=== PATIENT | male | born 1955 | race Hispanic/Latino ===

== ENCOUNTER → 2017-02-07 | Outpatient (CLI) | payer BC ==
[~2017-02-07] MED LIST: LISI10TA2 PO
--- NOTE | 2017-02-07 18:00 | Diagnostic Imaging Report ---
INDICATION: Cough and chest pain x1 week. TECHNIQUE: Two view chest at 4:54 PM CORRELATION STUDY: 05/18/2016 and 04/09/2015. FINDINGS: Heart size and vasculature within normal limits. Slight increased soft tissue density around the right paratracheal region superiorly, appears generally stable. On the lateral projection, there is increased density in the retrocardiac region, appears unchanged. The lung mcclain are otherwise clear and unremarkable Multi-level degenerative changes of the thoracic spine, disc space narrowing and endplate lipping. IMPRESSION: 1. Relatively stable chest demonstrates no acute abnormality. Dictated by: Dictated on workstation # [id number]
== END ==
LOC: RAD 16:28
PROVIDERS: ATTEND Family Medicine
DX: R05 Cough (principal); R07.9 Chest pain, unspecified
CPT/HCPCS: 71020

== ENCOUNTER 2017-02-11 10:20 | Emergency (ER) | payer BC ==
[~2017-02-11] VITALS: Ht 170.2 cm; Wt 86.2 kg
--- NOTE | 2017-02-11 11:25 | ED General ---
General Stated Complaint: LUNGS HURTING, BODY ACHES, FATIGUE Source of Information: Patient Exam Limitations: No Limitations History of Present Illness Time Seen by Provider: 11:23 Initial Comments To ER with reports of diffuse body aches, headache, "lungs hurting", productive cough for 2 weeks. Over the past few days, he's also developed diarrhea. He's had a fever up to 102. He had laboratory and chest x-ray evaluation 1 week ago by his primary care provider Dr. Srinivasan. He was told the x-ray was normal. He was given a course of Zithromax which he has finished. On the he was given a five-day course of 50 mg daily prednisone so he still has 1 more day of this. Despite this, his temperature still 102 upon arrival to ER. He denies any tick bites.He reports that his worst symptom is the productive cough. Timing/Duration: 1-2 Days Severity: Moderate Associated Systoms: Cough, Fever/Chills Allergies and Home Medications Allergies Coded Allergies: adhesive tape (Unverified Allergy, Unknown, 05/18/16) Home Medications No Active Prescriptions or Reported Meds Constitutional: see HPI, chills, fever, malaise EENTM: see HPI Respiratory: see HPI, cough, short of breath Cardiovascular: no symptoms reported Genitourinary: no symptoms reported Musculoskeletal: see HPI, muscle pain Skin: no symptoms reported Psychiatric/Neurological: No Symptoms Reported Hematologic/Lymphatic: No Symptoms Reported Past Xbzckzn-Wfazkf-Noybgl Hx Patient Social History Former Smoker, Quit: May 18, 1980 Recent Foreign Travel: No Contact w/Someone Who Travel: No Recent Hopitalizations: No Immunizations Up To Date Date of Influenza Vaccine: Apr 17, 2016 Seasonal Allergies Seasonal Allergies: No Respiratory Respiratory Disorders: Sleep Apnea Currently Using CPAP: Yes Currently Using BIPAP: No Cardiovascular Cardiac Disorders: Hypertension Reproductive System Hx Reproductive Disorders: No Integumentary Skin/Integumentary Disorders: Psoriasis Physical Exam Vital Signs Capillary Refill : General Appearance: No Apparent Distress, WD/WN Eyes: Bilateral Eye Normal Inspection, Bilateral Eye PERRL, Bilateral Eye EOMI HEENT: PERRL/EOMI, TMs Normal Neck: Full Range of Motion, Normal Inspection Respiratory: Normal Breath Sounds, No Accessory Muscle Use, No Respiratory Distress Gastrointestinal: Normal Bowel Sounds, Non Tender, Soft Extremity: Normal Capillary Refill, Normal Inspection Neurologic/Psychiatric: Alert, Oriented x3, No Motor/Sensory Deficits Skin: Normal Color, Warm/Dry Focused Exam Evaluation Lactate Level Laboratory Tests 02/11/17 11:20: Lactic Acid Level 1.01 Lactic Acid Level Laboratory Tests Test 02/11/17 11:20 Lactic Acid Level 1.01 MMOL/L (0.50-2.00) Progress/Results/Core Measures Results/Orders Lab Results Laboratory Tests Test 02/11/17 11:20 02/11/17 14:20 Range/Units White Blood Count 12.5 H 4.3-11.0 10^3/uL Red Blood Count 4.80 4.35-5.85 10^6/uL Hemoglobin 15.0 13.3-17.7 G/DL Hematocrit 45 40-54 % Mean Corpuscular Volume 93 80-99 FL Mean Corpuscular Hemoglobin 31 25-34 PG Mean Corpuscular Hemoglobin Concent 34 32-36 G/DL Red Cell Distribution Width 12.7 10.0-14.5 % Platelet Count 141 130-400 10^3/uL Mean Platelet Volume 10.9 H 7.4-10.4 FL Neutrophils (%) (Auto) 69 42-75 % Lymphocytes (%) (Auto) 23 12-44 % Monocytes (%) (Auto) 7 0-12 % Eosinophils (%) (Auto) 0 0-10 % Basophils (%) (Auto) 1 0-10 % Neutrophils # (Auto) 8.6 H 1.8-7.8 X 10^3 Lymphocytes # (Auto) 2.8 1.0-4.0 X 10^3 Monocytes # (Auto) 0.9 0.0-1.0 X 10^3 Eosinophils # (Auto) 0.0 0.0-0.3 10^3/uL Basophils # (Auto) 0.2 H 0.0-0.1 10^3/uL Erythrocyte Sedimentation Rate 11 0-30 MM/HR Sodium Level 138 135-145 MMOL/L Potassium Level 3.8 3.6-5.0 MMOL/L Chloride Level 105 98-107 MMOL/L Carbon Dioxide Level 23 21-32 MMOL/L Anion Gap 10 5-14 MMOL/L Blood Urea Nitrogen 14 7-18 MG/DL Creatinine 0.96 0.60-1.30 MG/DL Estimat Glomerular Filtration Rate > 60 BUN/Creatinine Ratio 15 Glucose Level 109 H 70-105 MG/DL Lactic Acid Level 1.01 0.50-2.00 MMOL/L Calcium Level 8.9 8.5-10.1 MG/DL Total Bilirubin 0.6 0.1-1.0 MG/DL Aspartate Amino Transf (AST/SGOT) 58 H 5-34 U/L Alanine Aminotransferase (ALT/SGPT) 45 0-55 U/L Alkaline Phosphatase 77 40-136 U/L C-Reactive Protein High Sensitivity 0.11 0.00-0.50 MG/DL Total Protein 7.4 6.4-8.2 GM/DL Albumin 3.9 3.2-4.5 GM/DL Monoscreen NEGATIVE NEGATIVE Urine Color YELLOW Urine Clarity SLIGHTLY CLOUDY Urine pH 6.5 5-9 Urine Specific Robinson 1.005 L 1.016-1.022 Urine Protein 1+ H NEGATIVE Urine Glucose (UA) NEGATIVE NEGATIVE Urine Ketones NEGATIVE NEGATIVE Urine Nitrite NEGATIVE NEGATIVE Urine Bilirubin NEGATIVE NEGATIVE Urine Urobilinogen NORMAL NORMAL MG/DL Urine Leukocyte Esterase NEGATIVE NEGATIVE Urine RBC (Auto) 1+ H NEGATIVE Urine RBC NONE /HPF Urine WBC NONE /HPF Urine Squamous Epithelial Cells 0-2 /HPF Urine Crystals NONE /LPF Urine Bacteria NEGATIVE /HPF Urine Casts NONE /LPF Urine Mucus NEGATIVE /LPF Urine Culture Indicated NO My Orders Orders - MADHURI REYES APRN Cbc With Automated Diff (02/11/17 11:20) Comprehensive Metabolic Panel (02/11/17 11:20) Ua Culture If Indicated (02/11/17 11:20) Monotest (02/11/17 11:20) Chest Pa/Lat (2 View) (02/11/17 11:20) Ct Angio Chest W (02/11/17 11:20) Saline Lock/Iv-Start (02/11/17 11:20) Blood Culture (02/11/17 11:20) Lactic Acid Analyzer (02/11/17 11:20) Acetaminophen Tablet (Tylenol Tablet) (02/11/17 11:30) Tick Panel With Lyme Eia (02/11/17 11:20) Ns Iv 1000 Ml (Sodium Chloride 0.9%) (02/11/17 11:30) Ketorolac Injection (Toradol Injection) (02/11/17 11:30) Iohexol Injection (Omnipaque 350 Mg/Ml 1 (02/11/17 11:30) Ns (Ivpb) (Sodium Chloride 0.9% Ivpb Bag (02/11/17 11:30) Erythrocyte Sedimentation Rate (02/11/17 11:36) Hs C Reactive Protein (02/11/17 11:36) Ns Iv 1000 Ml (Sodium Chloride 0.9%) (02/11/17 13:00) Doxycycline Injection (Vibramycin Inject (02/11/17 13:00) Medications Given in ED Current Medications Medications Dose Ordered Sig/Radha Route Start Time Stop Time Status Last Admin Dose Admin Acetaminophen 1,000 mg ONCE ONCE PO 02/11/17 11:30 02/11/17 11:31 DC 02/11/17 11:37 1,000 MG Doxycycline Hyclate 100 mg/ Sodium Chloride 100 ml @ 100 mls/hr ONCE ONCE IV 02/11/17 13:00 02/11/17 13:59 DC 02/11/17 13:23 100 MLS/HR Iohexol 150 ml ONCE ONCE IV 02/11/17 11:30 02/11/17 11:31 DC 02/11/17 12:07 125 ML Ketorolac Tromethamine 30 mg ONCE ONCE IVP 02/11/17 11:30 02/11/17 11:31 DC 02/11/17 11:37 30 MG Sodium Chloride 100 ml ONCE ONCE IV 02/11/17 11:30 02/11/17 11:31 DC 02/11/17 12:07 80 ML Vital Signs/I&O Intake and Output 02/12/17 00:00 Intake Total 2000 ml Balance 2000 ml Diagnostic Imaging Diagonstic Imaging: Xray Comments NAME: MARICHUY FREEMAN [facility] REC#: [id number] PT STATUS: REG ER : 1955 PHYSICIAN: MADHURI REYES CHILLER HAND ADMIT DATE: 02/11/17/ER Draft Date of Exam:02/11/17 CT ANGIO CHEST W PROCEDURE: CT angiography of the chest with contrast. TECHNIQUE: Multiple contiguous axial images were obtained through the chest after uneventful bolus administration of intravenous contrast. Reconstructed CTA MIP acquisitions were also performed. INDICATION: Chest pain. Weakness. COMPARISON: Chest radiograph 02/07/2017. CTA chest 05/18/2016. FINDINGS: Vasculature: No pulmonary artery filling defects. No evidence of thoracic aortic aneurysm or dissection. Heart and mediastinum: No mediastinal, hilar or axillary lymphadenopathy. Normal heart size. No pericardial effusion. Pleura: No pleural effusion or pneumothorax. Lungs and airway: No endobronchial lesions. Mild scarring and/or atelectasis in lung bases. Lungs are otherwise clear. Upper abdomen: The visualized upper abdominal contents, including the adrenal glands, are unremarkable on this angiographic phase exam. Musculoskeletal: Moderate degenerative changes in the thoracic spine. No suspicious osseous lesions. IMPRESSION: 1. No thoracic aortic aneurysm or dissection. No pulmonary artery filling defects. 2. Mild atelectasis and/or scarring in the lung bases. Dictated on workstation # [id number] Dict: 02/11/17 1228 Trans: 02/11/17 1233 [facility] [id number] Interpreted by: BRAEDEN BARTHOLOMEW MD Electronically signed by: Departure Communication Progress Notes [id number]-patient received 2 L of IV fluids, Toradol, Tylenol and 100 mg of IV doxycycline in the emergency room. Still unable to determine a source of infection. He does report that he is feeling better but still not normal. Temperature down to 100. We will discharge to home on doxycycline treating empirically for possible tickborne illness even though he denies any tick exposure that he is aware of. Impression Impression: Primary Impression: Febrile illness Additional Impression: Bronchitis Disposition: 01 HOME, SELF-CARE Condition: Stable Departure-Patient Inst. Decision time for Depature: 14:49 Referrals: BIBI SRINIVASAN MD (PCP/Family) Primary Care Physician Patient Instructions: Fever, Adult (DC) Add. Discharge Instructions: 1. Follow-up with Dr. Srinivasan. Call Monday preferably to be seen Monday or Monday for recheck 2. Return to ER for any worsening symptoms 3. Scripts Doxycycline Hyclate (Doxycycline Hyclate) 100 Mg Tablet 100 MG PO BID, #14 TAB Prov: MADHURI REYES APRN 02/11/17 Work/School Note: Work Release Form Date Seen in the Emergency Department: Feb 11, 2017 Return to Work: Feb 14, 2017 Copy Copies To 1: BIBI SRINIVASAN MD, PETER J APRN Feb 11, 2017 11:25
[2017-02-11 11:34] LABS: BASOPHILS # (AUTO) 0.2 10^3/uL (0.0-0.1); BASOPHILS % (AUTO) 1 % (0-10); EOSINOPHILS % (AUTO) 0 % (0-10); LYMPHOCYTES # (AUTO) 2.8 X 10^3 (1.0-4.0); LYMPHOCYTES % (AUTO) 23 % (12-44); MEAN CORPUSCULAR HEMOGLOBIN 31 PG (25-34); MEAN CORPUSCULAR HGB CONC 34 G/DL (32-36); MEAN CORPUSCULAR VOLUME 93 FL (80-99); MEAN PLATELET VOLUME 10.9 FL (7.4-10.4); MONOCYTES # (AUTO) 0.9 X 10^3 (0.0-1.0); MONOCYTES % (AUTO) 7 % (0-12); NEUTROPHILS # (AUTO) 8.6 X 10^3 (1.8-7.8); NEUTROPHILS % (AUTO) 69 % (42-75); PLATELET COUNT 141 10^3/uL (130-400); RED CELL DISTRIBUTION WIDTH 12.7 % (10.0-14.5); WHITE BLOOD COUNT 12.5 10^3/uL (4.3-11.0)
[2017-02-11] MEDS: KETOROLAC 30 MG/ML VIAL IVP ONE (11:37)
[2017-02-11] MEDS: ACETAMINOPHEN 500 MG TAB (TYLENOL) PO ONE (11:37)
[2017-02-11] MEDS: NS IV 1000 ML 1,000 ML IV SCH ×2 (11:37→12:53)
[2017-02-11 11:53] LABS: ALANINE AMINOTRANSFERASE 45 U/L (0-55); ALBUMIN 3.9 GM/DL (3.2-4.5); ANION GAP 10 MMOL/L (5-14); ASPARTATE AMINO TRANSFERASE 58 U/L (5-34); BILIRUBIN,TOTAL 0.6 MG/DL (0.1-1.0); BLOOD UREA NITROGEN 14 MG/DL (7-18); BUN/CREATININE RATIO 15; CALCIUM 8.9 MG/DL (8.5-10.1); CARBON DIOXIDE 23 MMOL/L (21-32); CHLORIDE 105 MMOL/L (98-107); CREATININE SERUM 0.96 MG/DL (0.60-1.30); GFR ESTIMATED > 60; GLUCOSE 109 MG/DL (70-105); POTASSIUM 3.8 MMOL/L (3.6-5.0); SODIUM 138 MMOL/L (135-145); TOTAL PROTEIN 7.4 GM/DL (6.4-8.2)
[2017-02-11] MEDS: IOHEXOL 350 MG/ML 150 ML (OMNIPAQUE 350) VIAL IV ONE (12:07)
[2017-02-11] MEDS: NS 100 ML (IVPB) BAG IV ONE (12:07)
--- NOTE | 2017-02-11 12:11 | Diagnostic Imaging Report ---
INDICATION: Difficulty breathing EXAMINATION: PA and lateral views of the chest. FINDINGS: The heart size and vascularity are normal. Lungs are clear. There is no effusion. There is no acute bony abnormality. IMPRESSION: No acute abnormality is seen. There is no change from 02/07/17. Dictated by: Dictated on workstation # [id number]
--- NOTE | 2017-02-11 12:34 | Diagnostic Imaging Report ---
PROCEDURE: CT angiography of the chest with contrast. TECHNIQUE: Multiple contiguous axial images were obtained through the chest after uneventful bolus administration of intravenous contrast. Reconstructed CTA MIP acquisitions were also performed. INDICATION: Chest pain. Weakness. COMPARISON: Chest radiograph 02/07/2017. CTA chest 05/18/2016. FINDINGS: Vasculature: No pulmonary artery filling defects. No evidence of thoracic aortic aneurysm or dissection. Heart and mediastinum: No mediastinal, hilar or axillary lymphadenopathy. Normal heart size. No pericardial effusion. Pleura: No pleural effusion or pneumothorax. Lungs and airway: No endobronchial lesions. Mild scarring and/or atelectasis in lung bases. Lungs are otherwise clear. Upper abdomen: The visualized upper abdominal contents, including the adrenal glands, are unremarkable on this angiographic phase exam. Musculoskeletal: Moderate degenerative changes in the thoracic spine. No suspicious osseous lesions. IMPRESSION: 1. No thoracic aortic aneurysm or dissection. No pulmonary artery filling defects. 2. Mild atelectasis and/or scarring in the lung bases. Dictated by: Dictated on workstation # [id number]
[2017-02-11] MEDS: DOXYCYCLINE INJECTION 100 MG in NS (IVPB) 100 ML IV ONE (13:23)
[2017-02-11 14:28] LABS: BILIRUBIN,URINE NEGATIVE (NEGATIVE); KETONES,URINE NEGATIVE (NEGATIVE); LEUKOCYTE ESTERASE ,URINE NEGATIVE (NEGATIVE); NITRITE,URINE NEGATIVE (NEGATIVE); PH,URINE 6.5 (5-9); PROTEIN,URINE 1+ (NEGATIVE); UROBILINOGEN,URINE NORMAL (NORMAL)
[2017-02-11 14:42] LABS: SQUAMOUS EPITHELIAL CELL,UR 0-2 /HPF
[2017-02-11 14:50] VITALS: BP 122/66
[2017-02-11] MEDS ORDERED: DOXY100T2 PO (14:51)
[2017-02-12] MEDS ORDERED: LISI-552 PO (10:05)
[2017-02-12] MEDS ORDERED: MONT10TA24 PO (10:05)
[2017-02-12] MEDS ORDERED: PSEU60TA20 PO (17:20)
[2017-02-12] MEDS ORDERED: FEXO-46 PO (17:20)
[2017-02-12] MEDS ORDERED: ACET325T49 PO (17:20)
[2017-02-12] MEDS ORDERED: CODE118S2 PO (17:20)
[2017-02-12] MEDS ORDERED: DOXY100C2 PO (17:20)
[2017-02-12] MEDS ORDERED: PRD50T PO (17:20)
[2017-02-12] MEDS ORDERED: IBUP-2055 PO (17:20)
[2017-02-13 14:51] LABS: EHRLICHIA CHAFFEENSIS G ABY <1:16 (<1:16)
[2017-02-13 15:35] LABS: IGG ROCKY MOUNTAIN SPOTTED FEV <1:16 (<1:16); IGM ROCKY MOUNTAIN SPOTTED FEV <1:10 (<1:10); LYME AB INTERP Negative (Negative)
== END 2017-02-11 14:58 | disposition home or self-care (01) ==
LOC: EDUNIT# 10:20 → ER 10:22
DX: J40 Bronchitis, not specified as acute or chronic (principal); G47.30 Sleep apnea, unspecified; I10 Essential (primary) hypertension
CPT/HCPCS: 36415; 71020; 71275; 80053; 81000; 83605; 85025; 85652; 86141; 86308; 86618; 86666; 86668; 86757; 87040

== ENCOUNTER 2017-02-12 09:24 | Inpatient (IN) | payer BC ==
[2017-02-12] VITALS (12 sets, daily range): BP systolic 113–142; BP diastolic 72–86
[~2017-02-12] VITALS: Ht 170.2 cm; Wt 91.4 kg
[~2017-02-12 09:24] MED LIST changes: +DOXY100T2 PO
[2017-02-12 09:57] LABS: BASOPHILS # (AUTO) 0.1 10^3/uL (0.0-0.1); BASOPHILS % (AUTO) 1 % (0-10); EOSINOPHILS % (AUTO) 0 % (0-10); LYMPHOCYTES # (AUTO) 1.5 X 10^3 (1.0-4.0); LYMPHOCYTES % (AUTO) 12 % (12-44); MEAN CORPUSCULAR HEMOGLOBIN 31 PG (25-34); MEAN CORPUSCULAR HGB CONC 34 G/DL (32-36); MEAN CORPUSCULAR VOLUME 92 FL (80-99); MEAN PLATELET VOLUME 11.1 FL (7.4-10.4); MONOCYTES # (AUTO) 0.8 X 10^3 (0.0-1.0); MONOCYTES % (AUTO) 6 % (0-12); NEUTROPHILS # (AUTO) 10.6 X 10^3 (1.8-7.8); NEUTROPHILS % (AUTO) 82 % (42-75); PLATELET COUNT 127 10^3/uL (130-400); RED BLOOD COUNT 4.57 10^6/uL (4.35-5.85); RED CELL DISTRIBUTION WIDTH 12.5 % (10.0-14.5); WHITE BLOOD COUNT 12.9 10^3/uL (4.3-11.0)
[2017-02-12] MEDS ORDERED: methylPREDNISolone 125 MG (Solu-MEDROL) VIAL IM ONE (10:00)
[2017-02-12] MEDS ORDERED: LISI-552 PO (10:05)
[2017-02-12] MEDS ORDERED: MONT10TA24 PO (10:05)
[2017-02-12 10:10] LABS: ALANINE AMINOTRANSFERASE 39 U/L (0-55); ALBUMIN 3.5 GM/DL (3.2-4.5); ANION GAP 10 MMOL/L (5-14); ASPARTATE AMINO TRANSFERASE 42 U/L (5-34); BILIRUBIN,TOTAL 0.6 MG/DL (0.1-1.0); BLOOD UREA NITROGEN 13 MG/DL (7-18); BUN/CREATININE RATIO 14; CALCIUM 8.4 MG/DL (8.5-10.1); CARBON DIOXIDE 23 MMOL/L (21-32); CHLORIDE 106 MMOL/L (98-107); GFR ESTIMATED > 60; GLUCOSE 128 MG/DL (70-105); POTASSIUM 3.8 MMOL/L (3.6-5.0); SODIUM 139 MMOL/L (135-145); TOTAL PROTEIN 6.7 GM/DL (6.4-8.2)
[2017-02-12] MEDS ORDERED: ACETAMINOPHEN 500 MG TAB (TYLENOL) PO ONE (10:15)
--- NOTE | 2017-02-12 11:08 | ED General ---
General Chief Complaint: Fever-Adult/Adol Stated Complaint: N/V, FEVER Nursing Triage Note: TO ED PER [facility]. PATIENT SEEN IN ED YESTERDAY WITH FEVER ALL TEST WAS NEG PER SENT HOME ON ANTIBIOTIC. TODAY NOT RESPONDING EYES OPEN WILL SHAKE HEAD YES, NO VERBAL RESPONSE. Nursing Sepsis Screen: Possible Severe Sepsis Risk Source of Information: Patient, Family Exam Limitations: No Limitations History of Present Illness Time Seen by Provider: 11:02 Initial Comments The patient is a 61-year-old male who was here yesterday. He apparently became ill on 01/26 with a cough. His cloud architect states that on 01/31 he began to run a fever. He saw his doctor and was given a steroid. He continued to be ill with fever aches and lethargy. He was here in the emergency room yesterday. His laboratory and other workup were largely unremarkable. He was started on doxycycline empirically yesterday with tick panels pending. He presented today with a temperature of 102+ and confusion. He does not answer questions but follows commands. Timing/Duration: Other (2 weeks plus) Associated Systoms: Fever/Chills, Weakness, Other (confusion) Allergies and Home Medications Allergies Coded Allergies: adhesive tape (Unverified Allergy, Unknown, 05/18/16) Home Medications Doxycycline Hyclate 100 Mg Tablet, 100 MG PO BID, #14 Prescribed by: MADHURI REYES on 02/11/17 1451 Lisinopril 20 Mg Tablet, (Reported) Montelukast Sodium 10 Mg Tablet, (Reported) Constitutional: see HPI EENTM: no symptoms reported Respiratory: no symptoms reported Cardiovascular: no symptoms reported Gastrointestinal: no symptoms reported Genitourinary: no symptoms reported Musculoskeletal: no symptoms reported Skin: no symptoms reported Psychiatric/Neurological: No Symptoms Reported Hematologic/Lymphatic: No Symptoms Reported Immunological/Allergic: no symptoms reported Past Bwpjhmx-Uokfdn-Bqsfgq Hx Patient Social History Alcohol Use: Denies Use Recreational Drug Use: No Smoking Status: Never a Smoker Former Smoker, Quit: May 18, 1980 Recent Foreign Travel: No Contact w/Someone Who Travel: No Recent Infectious Disease Expo: No Recent Hopitalizations: No Immunizations Up To Date Date of Influenza Vaccine: Apr 17, 2016 Seasonal Allergies Seasonal Allergies: No Surgeries History of Surgeries: Yes (RIGHT HAND SURGERY FOR INFECTION) Respiratory History of Respiratory Disorde: Yes Respiratory Disorders: Sleep Apnea Currently Using CPAP: Yes Currently Using BIPAP: No Cardiovascular History of Cardiac Disorders: Yes Cardiac Disorders: Hypertension Neurological History of Neurological Disord: No Reproductive System Hx Reproductive Disorders: No Gastrointestinal History of Gastrointestinal Di: No Musculoskeletal History of Musculoskeletal Dis: No Endocrine History of Endocrine Disorders: No Cancer History of Cancer: No Psychosocial History of Psychiatric Problem: No Integumentary History of Skin or Integumenta: Yes Skin/Integumentary Disorders: Psoriasis Blood Transfusions History of Blood Disorders: No Physical Exam Vital Signs Vital Sign - Last 12Hours 02/12/17 02/12/17 09:24 10:55 Temp 102.9 Pulse 114 Resp 18 B/P (MAP) 114/65 Pulse Ox 98 O2 Delivery Room Air Capillary Refill : Less Than 3 Seconds General Appearance: Moderate Distress, Other (confusion) Eyes: Bilateral Eye Normal Inspection HEENT: Other (tongue was coated) Neck: Full Range of Motion Respiratory: Chest Non Tender, Lungs Clear, Normal Breath Sounds, No Accessory Muscle Use, No Respiratory Distress Cardiovascular: Regular Rate, Rhythm, No Edema, No Gallop, No JVD, No Murmur, Normal Peripheral Pulses Gastrointestinal: Normal Bowel Sounds, No Organomegaly, No Pulsatile Mass, Non Tender, Soft Back: Normal Inspection Skin: Normal Color, Warm/Dry Lymphatic: No Adenopathy Focused Exam Evaluation Lactate Level Laboratory Tests 02/12/17 09:34: Lactic Acid Level 1.58 Lactic Acid Level Laboratory Tests Test 02/12/17 09:34 Lactic Acid Level 1.58 MMOL/L (0.50-2.00) Progress/Results/Core Measures Results/Orders Lab Results Laboratory Tests Test 02/12/17 09:34 Range/Units White Blood Count 12.9 H 4.3-11.0 10^3/uL Red Blood Count 4.57 4.35-5.85 10^6/uL Hemoglobin 14.2 13.3-17.7 G/DL Hematocrit 42 40-54 % Mean Corpuscular Volume 92 80-99 FL Mean Corpuscular Hemoglobin 31 25-34 PG Mean Corpuscular Hemoglobin Concent 34 32-36 G/DL Red Cell Distribution Width 12.5 10.0-14.5 % Platelet Count 127 L 130-400 10^3/uL Mean Platelet Volume 11.1 H 7.4-10.4 FL Neutrophils (%) (Auto) 82 H 42-75 % Lymphocytes (%) (Auto) 12 12-44 % Monocytes (%) (Auto) 6 0-12 % Eosinophils (%) (Auto) 0 0-10 % Basophils (%) (Auto) 1 0-10 % Neutrophils # (Auto) 10.6 H 1.8-7.8 X 10^3 Lymphocytes # (Auto) 1.5 1.0-4.0 X 10^3 Monocytes # (Auto) 0.8 0.0-1.0 X 10^3 Eosinophils # (Auto) 0.0 0.0-0.3 10^3/uL Basophils # (Auto) 0.1 0.0-0.1 10^3/uL Sodium Level 139 135-145 MMOL/L Potassium Level 3.8 3.6-5.0 MMOL/L Chloride Level 106 98-107 MMOL/L Carbon Dioxide Level 23 21-32 MMOL/L Anion Gap 10 5-14 MMOL/L Blood Urea Nitrogen 13 7-18 MG/DL Creatinine 0.90 0.60-1.30 MG/DL Estimat Glomerular Filtration Rate > 60 BUN/Creatinine Ratio 14 Glucose Level 128 H 70-105 MG/DL Lactic Acid Level 1.58 0.50-2.00 MMOL/L Calcium Level 8.4 L 8.5-10.1 MG/DL Total Bilirubin 0.6 0.1-1.0 MG/DL Aspartate Amino Transf (AST/SGOT) 42 H 5-34 U/L Alanine Aminotransferase (ALT/SGPT) 39 0-55 U/L Alkaline Phosphatase 76 40-136 U/L Total Protein 6.7 6.4-8.2 GM/DL Albumin 3.5 3.2-4.5 GM/DL My Orders Orders - CM LANIER MD Methylprednisolone Sod Succ (Solu-Medrol (02/12/17 10:00) Cbc With Automated Diff (02/12/17 09:52) Comprehensive Metabolic Panel (02/12/17 09:52) Acetaminophen Tablet (Tylenol Tablet) (02/12/17 10:15) Lactic Acid Analyzer (02/12/17 10:14) Medications Given in ED Current Medications Medications Dose Ordered Sig/Radha Route Start Time Stop Time Status Last Admin Dose Admin Acetaminophen 1,000 mg ONCE ONCE PO 02/12/17 10:15 02/12/17 10:16 DC 02/12/17 10:19 1,000 MG Vital Signs/I&O Vital Sign - Last 12Hours 02/12/17 02/12/17 09:24 10:55 Temp 102.9 Pulse 114 86 Resp 18 18 B/P (MAP) 114/65 126/73 Pulse Ox 98 O2 Delivery Room Air Blood Pressure Mean: 90 Departure Communication Progress Notes [address] Holt. The patient is a remarkably resembles symptoms in a patient the hospitalist service saw last week. He will be admitted for fluid resuscitation and fever treatment plus empiric antibiotics. Impression Impression: Primary Impression: febrile illness Additional Impression: confusion Disposition: ADMITTED INPATIENT Condition: Stable/Unchanged Admissions Decision to Admit Reason: Admit from ER (General) Decision to Admit/Date: Feb 12, 2017 Time/Decision to Admit Time: 11:12 Departure-Patient Inst. Referrals: BIBI ARMAS MD (PCP/Family) Primary Care Physician CM LANIER MD Feb 12, 2017 11:07
[2017-02-12] MEDS ORDERED: cefTRIAXone INJECTION 1,000 MG in NS (IVPB) 50 ML IV ONE ×2 (11:30→18:15)
--- NOTE | 2017-02-12 11:53 | Diagnostic Imaging Report ---
PROCEDURE: CT head without contrast. TECHNIQUE: Multiple contiguous axial images were obtained through the brain without the use of intravenous contrast. INDICATION: Altered mental status. Confusion. COMPARISON: CT head without contrast 05/18/2016. FINDINGS: No intracranial hemorrhage, mass effect, hydrocephalus or extra-axial fluid collections. No CT evidence of acute infarction. Osseous structures are intact. The visualized paranasal sinuses and mastoids are clear. No significant change. IMPRESSION: No acute intracranial CT findings. Dictated by: Dictated on workstation # [id number]
--- NOTE | 2017-02-12 12:30 | Anesthesia-Procedure Note ---
Procedure Start/Stop Time Date of Procedure: Feb 12, 2017 Start Time: 12:00 Referring Physician: Aguila Brief History Platelets 127k/ WNL. Head CT negative per Dr. Sheehan. Stop Time: 12:15 Procedures/Interventions Discussed Risk,Benefits: Yes (Pt confused, speaks some Vietnamese. Procedure explained to , who also signed consent. ) Patient Consents: Yes (see above note. Pt is alert, procedure explained, and patient cooperative. ) Position: Lying, L3-4, Left Sterile Technique: Yes Opening Pressure: 20 Fluid Color: clear Spinal Needle Used: 22g Church 3 1/2 inch Procedure Notes X1 Attempt. Pt tolerated well, with no paraesthesia or heme. CSF collected x4 vials ( 2ml/each) and sent to lab. Other Comment: remains in room during procedure. FELY SALINAS CRNA Feb 12, 2017 12:30
[2017-02-12 12:46] LABS: CSF GLUCOSE 61 MG/DL (50-80); CSF TOTAL PROTEIN 117 MG/DL (15-40)
[2017-02-12 13:00] LABS: APPEARANCE,CSF SLT CLDY; COLOR,CSF COLORLESS; WHITE BLOOD CELL,CSF 437 CELLS (0-5)
[2017-02-12 13:19] LABS: LYMPHOCYTES,CSF 58 %
[2017-02-12] MEDS ORDERED: VANCOMYCIN 1500 MG/NS 500 ML IVPB IV NR ×2 (16:01)
[2017-02-12] MEDS ORDERED: DEXAMETHASONE 4 MG/ML SDV (DECADRON) IV NR (16:07)
[2017-02-12] MEDS ORDERED: ACET325T49 PO (17:20)
[2017-02-12] MEDS ORDERED: DOXY100C2 PO (17:20)
[2017-02-12] MEDS ORDERED: IBUP-2055 PO (17:20)
[2017-02-12] MEDS ORDERED: PSEU60TA20 PO (17:20)
[2017-02-12] MEDS ORDERED: CODE118S2 PO (17:20)
[2017-02-12] MEDS ORDERED: FEXO-46 PO (17:20)
[2017-02-12] MEDS ORDERED: PRD50T PO (17:20)
[2017-02-12] MEDS: NS IV 1000 ML 1,000 ML IV SCH (17:50)
[2017-02-12] MEDS: NS IV SCH (17:50)
[2017-02-12] MEDS: ACYCLOVIR IV SCH (17:50)
[2017-02-12] MEDS ORDERED: cefTRIAXone 1 GM (ROCEPHIN) VIAL ONE ×2 (19:52→19:54)
[2017-02-12] MEDS ORDERED: NS (IVPB) 50 ML ONE (19:54)
--- NOTE | 2017-02-12 21:14 | History & Physical-Hospitalist ---
HPI History of Present Illness: HPI/Chief Complaint Mr. Hampton is a 61-year-old manic male who is well up until the when he came down with chest congestion and some mild head cold symptoms with rhinorrhea and congestion. The symptoms did not progress but he continued to feel lethargic. He became febrile on the which continued. His for which the history is taken due to patient's current confusion reports that point he did not have a headache and was not coughing up any purulent sputum. He saw a primary care provider who due to a tick bite in November with no other known exposure did put him on doxycycline. He presented emergency room yesterday with fever but without confusion labs were unremarkable and he was discharged. This morning reports she was complaining about a headache and increasingly confused. She simply brought him to the emergency room where per Dr. Mccarthy he was not communicating but could follow simple commands. For me he was unable to follow commands such as asking to squeeze fingers or take a deep breath. His eyes were open and he would orient to voice and was moving all extremities. reports he has a history of diet-controlled diabetes with no known previous history of sepsis infection or meningitis. She reports she did have a spider bite a little over a year ago that did lead to some tissue necrosis the right lower extremity but it is healed over and he has not been having any drainage or pain from the site. They have several dogs and 1 cat at home whom all have been well. He does not velasquez and there is no other known animal exposure. There is no travel history in the recent past. Date Seen 02/12/17 Time Seen by Provider: 13:00 Attending Physician Sylvia Holt MD PCP Amirah Srinivasan MD Referring Physician Date of Admission Feb 12, 2017 at 14:13 Home Medications & Allergies Home Medications Reviewed patient Home Medication Reconciliation Form Allergies Allergies Coded Allergies adhesive tape (Unverified Allergy, Unknown, 05/18/16) Past Rgrojhe-Damswr-Oxkqbq Hx Patient Social History Alcohol Use: Denies Use Recreational Drug Use: No Smoking Status: Former Smoker Former Smoker, Quit: May 18, 1980 Physical Abuse Screen: No Sexual Abuse: No Recent Foreign Travel: No Contact w/other who traveled: No Recent Hopitalizations: No Recent Infectious Disease Expo: No Immunizations Up To Date Date of Influenza Vaccine: Apr 17, 2016 Seasonal Allergies Seasonal Allergies: No Surgeries Yes (RIGHT HAND SURGERY FOR INFECTION) Respiratory Yes Asthma Currently Using CPAP: Yes Currently Using BIPAP: No Cardiovascular Yes Hypertension Neurological Yes Reproductive System Hx Reproductive Disorders: No Genitourinary No Gastrointestinal No Musculoskeletal No Endocrine History of Endocrine Disorders: Yes HEENT History of HEENT Disorders: No Cancer No Psychosocial History of Psychiatric Problem: No Integumentary History of Skin or Integumenta: Yes Skin/Integumentary Disorders: Psoriasis Blood Transfusions History of Blood Disorders: No Family Medical History Family Hx: Diabetes mellitus 19 MOTHER Hypertension 19 MOTHER Review of Systems ROS-Unable to Obtain: Do to uresponsive state Constitutional: see HPI Physical Exam Physical Exam Vital Signs Vital Sign - Last 12Hours 02/12/17 02/12/17 02/12/17 09:24 10:55 15:09 Temp 102.9 Pulse 114 Resp 18 B/P (MAP) 114/65 Pulse Ox 98 O2 Delivery Room Air O2 Flow Rate 3.00 Capillary Refill : Less Than 3 Seconds General Appearance: WD/WN, Mild Distress Eyes: Bilateral Eye Normal Inspection, Bilateral Eye PERRL, Bilateral Eye EOMI HEENT: PERRL/EOMI Neck: Full Range of Motion, Normal Inspection, Supple Respiratory: Chest Non Tender, Lungs Clear, Normal Breath Sounds, No Accessory Muscle Use, No Respiratory Distress Cardiovascular: Regular Rate, Rhythm, No Edema, No Gallop, No JVD, No Murmur, Normal Peripheral Pulses Gastrointestinal: Normal Bowel Sounds, No Organomegaly, No Pulsatile Mass, Non Tender, Soft Extremity: Normal Capillary Refill, Normal Inspection, Normal Range of Motion, Non Tender, No Calf Tenderness, No Pedal Edema Neurologic/Psychiatric: Other (open but unresponsive eyes moving all extrs no posturing) Skin: Normal Color, Damp, Diaphoresis (mild) Results Results/Procedures Lab Laboratory Tests 02/12/17 09:34 02/13/17 04:50 Assessment/Plan Admission Diagnosis Menningoencephalitis of likely viral etiology continue antibiotics for now and acyclovir prognosis guarded. Hx of diet controlled DMII. Clinical Quality Measures DVT/VTE Risk/Contraindication: Risk Factor Score Per Nursin RFS Level Per Nursing on Admit: 1=Low/No VTE PPX SYLVIA HOLT MD Feb 12, 2017 21:13
[2017-02-12] MEDS: ACETAMINOPHEN 325 MG TABLET/CAPLET (TYLENOL) PO PRN (21:32)
[2017-02-12] MEDS: MELATONIN 3 MG TABLET PO PRN (23:04)
[2017-02-13] VITALS (14 sets, daily range): BP systolic 99–133; BP diastolic 65–96
[2017-02-13] MEDS ORDERED: NS (IVPB) 50 ML ONE ×2 (00:11→03:32)
[2017-02-13] MEDS: ACYCLOVIR IV SCH ×4 (00:26→23:18)
[2017-02-13] MEDS: NS IV SCH ×4 (00:26→23:18)
[2017-02-13] MEDS: AMPICILLIN 2 GM/NS 50 ML IVPB IV SCH ×14 (00:27→23:19)
[2017-02-13] MEDS: DEXAMETHASONE 4 MG/ML SDV (DECADRON) IV SCH ×3 (01:07→16:34)
[2017-02-13] MEDS: NS IV 1000 ML 1,000 ML IV SCH ×3 (02:15→21:20)
[2017-02-13] MEDS ORDERED: AMPICILLIN 2000 MG INJECTION (IM/IV) ONE ×2 (03:11)
[2017-02-13 05:00] LABS: BASOPHILS % (AUTO) 0 % (0-10); EOSINOPHILS % (AUTO) 0 % (0-10); LYMPHOCYTES # (AUTO) 1.1 X 10^3 (1.0-4.0); LYMPHOCYTES % (AUTO) 8 % (12-44); MEAN CORPUSCULAR HEMOGLOBIN 31 PG (25-34); MEAN CORPUSCULAR HGB CONC 34 G/DL (32-36); MEAN CORPUSCULAR VOLUME 92 FL (80-99); MEAN PLATELET VOLUME 11.1 FL (7.4-10.4); MONOCYTES # (AUTO) 0.3 X 10^3 (0.0-1.0); MONOCYTES % (AUTO) 2 % (0-12); NEUTROPHILS # (AUTO) 11.8 X 10^3 (1.8-7.8); NEUTROPHILS % (AUTO) 89 % (42-75); PLATELET COUNT 112 10^3/uL (130-400); RED BLOOD COUNT 4.39 10^6/uL (4.35-5.85); RED CELL DISTRIBUTION WIDTH 12.4 % (10.0-14.5); WHITE BLOOD COUNT 13.3 10^3/uL (4.3-11.0)
[2017-02-13 05:22] LABS: ALANINE AMINOTRANSFERASE 33 U/L (0-55); ALBUMIN 3.2 GM/DL (3.2-4.5); ANION GAP 11 MMOL/L (5-14); ASPARTATE AMINO TRANSFERASE 47 U/L (5-34); BILIRUBIN,TOTAL 0.8 MG/DL (0.1-1.0); BLOOD UREA NITROGEN 11 MG/DL (7-18); BUN/CREATININE RATIO 16; CALCIUM 8.3 MG/DL (8.5-10.1); CARBON DIOXIDE 17 MMOL/L (21-32); CHLORIDE 110 MMOL/L (98-107); GFR ESTIMATED > 60; GLUCOSE 150 MG/DL (70-105); POTASSIUM 3.8 MMOL/L (3.6-5.0); SODIUM 138 MMOL/L (135-145); TOTAL PROTEIN 6.5 GM/DL (6.4-8.2)
[2017-02-13 05:47] LABS: MAGNESIUM 1.9 MG/DL (1.8-2.4); PHOSPHORUS 2.7 MG/DL (2.3-4.7)
[2017-02-13] MEDS: cefTRIAXone 2 GM/NS 50 ML IVPB IV SCH ×4 (05:51→17:54)
[2017-02-13] MEDS: POTASSIUM CL 10MEQ/50ML IVPB 50 ML IV SCH (06:00)
[2017-02-13] MEDS: MAGNESIUM 1 GM/100 ML IVPB 100 ML IV SCH (06:00)
[2017-02-13] MEDS: KCL 20 MEQ TAB (K-DUR) PO SCH (06:00)
[2017-02-13] MEDS: VANCOMYCIN 1250 MG/NS 250 ML IVPB IV SCH ×4 (06:36→17:56)
--- NOTE | 2017-02-13 08:16 | Diagnostic Imaging Report ---
INDICATION: Shortness of air. COMPARISON: 02/11/2017 FINDINGS: Single frontal radiographic view of the chest was obtained. There has been interval development of prominent consolidation in the right hilar and infrahilar regions. Lungs also show diminished inspiratory volumes. There is some persistent patchy opacification involving the lateral costophrenic angle on the left. There is no large effusion. No pneumothorax is seen. Cardiac silhouette and pulmonary vasculature stable. IMPRESSION: 1. New consolidation in the medial right lung base concerning for pneumonia. Followup to resolution is recommended. 2. Persistent atelectasis and/or infiltrate in the lateral left costophrenic angle. Continued followup is recommended. Dictated by: Dictated on workstation # [id number]
--- NOTE | 2017-02-13 08:33 | Pulmonary Consultation ---
History of Present Illness History of Present Illness Date of Consultation 02/13/17 08:28 Time Seen by Provider: 08:28 Date of Admission History of Present Illness 61yo presented to ED secondary to progressive cough, fever. Symptoms started on 01/26 with a cough and progressed to fever. He was given out patient steroids, doxy by his PCP and he continued to have worsening fever, aches, and lethargy. Tick panel is pending. Upon ED admission he had fever of 102 and was confused. He was not answering questions or following commands. Allergies and Home Medications Allergies Coded Allergies: adhesive tape (Unverified Allergy, Unknown, 05/18/16) Home Medications Acetaminophen 325 Mg Tablet, 650 MG PO Q4H PRN for FEVER, (Reported) Doxycycline Hyclate 100 Mg Capsule, 100 MG PO BID, (Reported) FILLED 02/11/17 #14 Fexofenadine HCl 180 Mg Tablet, 180 MG PO DAILY, (Reported) Ibuprofen 200 Mg Tablet, 200 MG PO Q6H PRN for PAIN-MILD, (Reported) Lisinopril 20 Mg Tablet, 20 MG PO DAILY, (Reported) Prednisone 50 Mg Tab, 50 MG PO DAILY, (Reported) FILLED 02/07/17 #5 FOR A 5 DAY THERAPY Promethazine HCl/Codeine 118 Ml Syrup, 5 ML PO Q6H PRN for COUGH, (Reported) Pseudoephedrine HCl 60 Mg Tablet, 60 MG PO Q6H PRN for CONGESTION, (Reported) Past Hdkeipn-Fwfrsg-Kkrhuj Hx Patient Social History Alcohol Use: Denies Use Recreational Drug Use: No Smoking Status: Former Smoker Former Smoker, Quit: May 18, 1980 Recent Foreign Travel: No Contact w/Someone Who Travel: No Recent Infectious Disease Expo: No Recent Hopitalizations: No Immunizations Up To Date Date of Influenza Vaccine: Apr 17, 2016 Seasonal Allergies Seasonal Allergies: No Surgeries History of Surgeries: Yes (RIGHT HAND SURGERY FOR INFECTION) Respiratory History of Respiratory Disorde: Yes Respiratory Disorders: Sleep Apnea Currently Using CPAP: Yes Currently Using BIPAP: No Cardiovascular History of Cardiac Disorders: Yes Cardiac Disorders: Hypertension Neurological History of Neurological Disord: Yes Reproductive System Hx Reproductive Disorders: No Genitourinary History of Genitourinary Disor: No Gastrointestinal History of Gastrointestinal Di: No Musculoskeletal History of Musculoskeletal Dis: No Endocrine History of Endocrine Disorders: Yes HEENT History of HEENT Disorders: No Cancer History of Cancer: No Psychosocial History of Psychiatric Problem: No Integumentary History of Skin or Integumenta: Yes Skin/Integumentary Disorders: Psoriasis Blood Transfusions History of Blood Disorders: No Family Medical History Family Medial History: Diabetes mellitus 19 MOTHER Hypertension 19 MOTHER Exam Exam Vital Signs Date Time Temp Pulse Resp B/P (MAP) Pulse Ox O2 Delivery O2 Flow Rate FiO2 02/13/17 07:00 51 02/13/17 07:00 53 24 112/72 93 Nasal Cannula 2.00 02/13/17 06:00 51 17 115/82 94 Nasal Cannula 2.00 02/13/17 05:00 43 18 115/79 96 Nasal Cannula 2.00 02/13/17 04:35 50 16 96 Nasal Cannula 2.00 02/13/17 04:00 97.4 74 20 120/84 94 Nasal Cannula 3.00 02/13/17 04:00 97 Nasal Cannula 3.00 02/13/17 03:00 43 19 101/68 97 Nasal Cannula 3.00 02/13/17 02:00 49 24 99/66 95 Nasal Cannula 3.00 02/13/17 01:14 53 21 96 Nasal Cannula 3.00 02/13/17 01:00 51 17 103/71 96 Nasal Cannula 4.00 02/13/17 01:00 51 02/13/17 00:00 97 Nasal Cannula 4.00 02/13/17 00:00 50 17 102/65 97 Nasal Cannula 4.00 02/12/17 23:00 69 13 118/73 97 Nasal Cannula 4.00 02/12/17 22:00 80 16 115/82 93 Nasal Cannula 4.00 02/12/17 21:00 89 16 113/72 90 Nasal Cannula 4.00 02/12/17 20:00 100.3 73 24 130/86 91 Nasal Cannula 4.00 02/12/17 20:00 91 Nasal Cannula 4.00 02/12/17 19:00 81 02/12/17 19:00 81 20 119/74 92 Nasal Cannula 4.00 02/12/17 18:00 99.7 67 16 142/83 96 Nasal Cannula 3.00 02/12/17 18:00 67 16 128/78 96 02/12/17 17:46 61 17 125/77 97 02/12/17 17:00 61 17 125/77 97 Nasal Cannula 3.00 02/12/17 16:00 61 18 132/76 98 Nasal Cannula 3.00 02/12/17 15:30 Room Air 02/12/17 15:18 122/84 02/12/17 15:15 98.4 63 18 122/84 93 Nasal Cannula 3.00 02/12/17 15:09 98.9 66 18 97 Nasal Cannula 3.00 02/12/17 10:55 86 18 126/73 98 Room Air 02/12/17 09:24 102.9 114 18 114/65 General Appearance: WD/WN, Mild Distress HEENT: PERRL/EOMI Neck: Full Range of Motion, Normal Inspection, Supple Respiratory: Chest Non Tender, Lungs Clear, Normal Breath Sounds, No Accessory Muscle Use, No Respiratory Distress Cardiovascular: Regular Rate, Rhythm, No Edema, No Gallop, No JVD, No Murmur, Normal Peripheral Pulses Capillary Refill: Less Than 3 Seconds Extremity: Normal Capillary Refill, Normal Inspection, Normal Range of Motion, Non Tender, No Calf Tenderness, No Pedal Edema Neurologic/Psychiatric: Other (open but unresponsive eyes moving all extrs no posturing) Skin: Normal Color, Damp, Diaphoresis (mild) Lymphatic: No Adenopathy Results Lab Laboratory Tests 02/12/17 09:34 02/13/17 04:50 Assessment/Plan Assessment/Plan Acute meningitis -Pt is currently on vanco, 2gms Rocephin, ampicillin and acyclovir -isolation - pneumonia -Abx Sepsis -Continue Abx , IVF 255 Clinical Quality Measures DVT/VTE Risk/Contraindication: Risk Factor Score Per Nursin RFS Level Per Nursing on Admit: 1=Low/No VTE PPX RENU PINEDA DO Feb 13, 2017 08:33
[2017-02-13] MEDS ORDERED: cefTRIAXone 1 GM/NS 50 ML IVPB IV SCH ×2 (12:00)
[2017-02-13] MEDS: ACETAMINOPHEN 325 MG TABLET/CAPLET (TYLENOL) PO PRN (12:32)
--- NOTE | 2017-02-13 13:31 | Progress Note-Hospitalist ---
Standard Progress Note Progress Notes/Assess & Plan Date Seen 02/13/17 Time Seen by Provider: 13:18 Diagnosis Menningoencephalitis of likely viral etiology continue antibiotics for now and acyclovir prognosis guarded. Hx of diet controlled DMII. Assess & Plan/Chief Complaint The patient is brighter than on his presentation to the emergency room yesterday. His 102.9 temperature at that point has been controlled and his highest temp as an inpatient has been 100.3. Gram stain on CSF showed no bacteria. Our other CSF studies remain pending. He has been transferred to the floor in improved condition. He is much brighter today and answers questions promptly and confidently. He does not remember me from the ER. Physical exam: He is bright and smiling. Lungs are clear to auscultation. CV is regular without murmur. Abdomen is soft. Skin shows no rashes. Impression: Meningitis most typical of viral. Plan: Continue present medications until infectious testing returns Labs Laboratory Tests 02/12/17 09:34 02/13/17 04:50 CM LANIER MD Feb 13, 2017 13:31
[2017-02-14] VITALS: BP 149/92
[2017-02-14] MEDS: DEXAMETHASONE 4 MG/ML SDV (DECADRON) IV SCH ×2 (01:19→09:01)
[2017-02-14 04:00] VITALS: BP 138/85
[2017-02-14] MEDS: AMPICILLIN 2 GM/NS 50 ML IVPB IV SCH ×4 (04:11→09:00)
[2017-02-14] MEDS ORDERED: TROUGH ORDER-PHARMACY XX ONE (05:00)
[2017-02-14] MEDS: ACETAMINOPHEN 325 MG TABLET/CAPLET (TYLENOL) PO PRN (05:19)
[2017-02-14] MEDS: MAGNESIUM 1 GM/100 ML IVPB 100 ML IV SCH (05:36)
[2017-02-14] MEDS: POTASSIUM CL 10MEQ/50ML IVPB 50 ML IV SCH (05:36)
[2017-02-14] MEDS: KCL 20 MEQ TAB (K-DUR) PO SCH (05:37)
[2017-02-14] MEDS: VANCOMYCIN 1250 MG/NS 250 ML IVPB IV SCH ×2 (06:27)
[2017-02-14] MEDS: cefTRIAXone 2 GM/NS 50 ML IVPB IV SCH ×2 (06:27)
[2017-02-14 07:57] LABS: STREP PNEUMOCOCCUS ANTIG Negative
[2017-02-14 08:56] VITALS: BP 130/80
[2017-02-14] MEDS: NS IV SCH ×3 (09:01→23:28)
[2017-02-14] MEDS: ACYCLOVIR IV SCH ×3 (09:01→23:28)
[2017-02-14] MEDS: NS IV 1000 ML 1,000 ML IV SCH ×2 (09:02→20:12)
[2017-02-14 12:35] LABS: CRYPTOCOCCUS ANTIGEN CSF PT Negative (Negative)
--- NOTE | 2017-02-14 13:10 | Progress Note-Hospitalist ---
Standard Progress Note Progress Notes/Assess & Plan Date Seen 02/14/17 Time Seen by Provider: 12:45 Diagnosis Menningoencephalitis of likely viral etiology continue antibiotics for now and acyclovir prognosis guarded. Hx of diet controlled DMII. Assess & Plan/Chief Complaint The patient reports he is feeling much better. He has been afebrile for 24 hours. The bacterial cultures have been negative and therefore the IV antibiotics have been discontinued. It is hoped that he will be ready for discharge tomorrow. Physical exam: He is sitting in a chair at bedside and is bright and cheerful. Lungs are clear to auscultation. CV is regular without murmur. Impression: Likely viral meningitis. 2.febrile illness of more than 2 weeks' duration. Plan: Withdrawal of antibiotics support and observation. Labs Laboratory Tests 02/13/17 04:50 CM LANIER MD Feb 14, 2017 13:10
[2017-02-14] MEDS ORDERED: VANCOMYCIN 1250 MG/NS 250 ML IVPB IV SCH ×2 (14:00)
[2017-02-14 15:32] LABS: HSV 2 DNA PCR CSF Not Detected (Not Detected)
[2017-02-14 16:18] LABS: HSV 1 DNA PCR Not Detected (Not Detected)
[2017-02-14 20:06] VITALS: BP 132/81
[2017-02-14] MEDS: MELATONIN 3 MG TABLET PO PRN (20:12)
[2017-02-15 00:30] VITALS: BP 123/78
[2017-02-15] MEDS: ACETAMINOPHEN 325 MG TABLET/CAPLET (TYLENOL) PO PRN (03:32)
[2017-02-15 04:40] VITALS: BP 132/73
[2017-02-15] MEDS: NS IV 1000 ML 1,000 ML IV SCH ×2 (05:33→09:45)
[2017-02-15 08:00] VITALS: BP 127/83
--- NOTE | 2017-02-15 09:21 | Pulmonary Progress Note ---
Subjective Time Seen by Provider: 09:20 Subjective/Events-last exam No complications noted. Exam Exam Vital Signs Date Time Temp Pulse Resp B/P (MAP) Pulse Ox O2 Delivery O2 Flow Rate FiO2 02/15/17 07:11 94 Nasal Cannula 2.00 02/15/17 04:40 97.5 55 20 132/73 94 Nasal Cannula 2.00 02/15/17 01:00 43 02/15/17 00:30 97.5 53 18 123/78 95 Nasal Cannula 2.00 02/14/17 20:15 Nasal Cannula 2.00 02/14/17 20:06 99.3 55 18 132/81 93 Nasal Cannula 2.00 02/14/17 19:00 66 General Appearance: No Apparent Distress, WD/WN HEENT: PERRL/EOMI Neck: Full Range of Motion, Normal Inspection, Supple Respiratory: Chest Non Tender, Lungs Clear, Normal Breath Sounds, No Accessory Muscle Use, No Respiratory Distress Cardiovascular: Regular Rate, Rhythm, No Edema, No Gallop, No JVD, No Murmur, Normal Peripheral Pulses Capillary Refill: Less Than 3 Seconds Extremity: Normal Capillary Refill, Normal Inspection, Normal Range of Motion, Non Tender, No Calf Tenderness, No Pedal Edema Neurologic/Psychiatric: Other (open but unresponsive eyes moving all extrs no posturing) Skin: Normal Color, Damp, Diaphoresis (mild) Lymphatic: No Adenopathy Assessment/Plan Assessment/Plan Acute meningitis -Abx have been d/c'd. No fevers noted -repeat labs -isolation - pneumonia -repeat CXR and labs 232 Clinical Quality Measures DVT/VTE Risk/Contraindication: Risk Factor Score Per Nursin RFS Level Per Nursing on Admit: 1=Low/No VTE PPX RENU PINEDA DO Feb 15, 2017 09:21
[2017-02-15] MEDS: ACYCLOVIR IV SCH (09:45)
[2017-02-15] MEDS: NS IV SCH (09:45)
[2017-02-15 09:50] LABS: BASOPHILS % (AUTO) 0 % (0-10); EOSINOPHILS % (AUTO) 0 % (0-10); LYMPHOCYTES # (AUTO) 2.7 X 10^3 (1.0-4.0); LYMPHOCYTES % (AUTO) 28 % (12-44); MEAN CORPUSCULAR HEMOGLOBIN 31 PG (25-34); MEAN CORPUSCULAR HGB CONC 34 G/DL (32-36); MEAN CORPUSCULAR VOLUME 92 FL (80-99); MONOCYTES # (AUTO) 0.7 X 10^3 (0.0-1.0); MONOCYTES % (AUTO) 7 % (0-12); NEUTROPHILS # (AUTO) 6.2 X 10^3 (1.8-7.8); NEUTROPHILS % (AUTO) 65 % (42-75); PLATELET COUNT 128 10^3/uL (130-400); RED BLOOD COUNT 4.11 10^6/uL (4.35-5.85); RED CELL DISTRIBUTION WIDTH 12.6 % (10.0-14.5); WHITE BLOOD COUNT 9.7 10^3/uL (4.3-11.0)
[2017-02-15 10:07] LABS: ANION GAP 5 MMOL/L (5-14); BLOOD UREA NITROGEN 10 MG/DL (7-18); BUN/CREATININE RATIO 15; CARBON DIOXIDE 23 MMOL/L (21-32); CHLORIDE 112 MMOL/L (98-107); CREATININE SERUM 0.67 MG/DL (0.60-1.30); GFR ESTIMATED > 60; GLUCOSE 91 MG/DL (70-105); POTASSIUM 3.6 MMOL/L (3.6-5.0); SODIUM 140 MMOL/L (135-145)
--- NOTE | 2017-02-15 10:55 | Diagnostic Imaging Report ---
Portable erect AP chest at 945 hours. INDICATION: Pneumonia. FINDINGS: The heart size is within normal limits and stable when compared to 02/13/17. The previous study did show atelectasis/infiltrate in the left costophrenic angle as well as an area of increased density in the right infrahilar region. On this study both of those areas do seem better aerated. I suspect there is still some residual atelectasis/infiltrate present in each lung base, however. A followup exam would be recommended for continued evaluation. The upper lungs remain clear. The mediastinum is not widened. The osseous structures are intact. IMPRESSION: The appearance of the chest has improved since the prior exam as both lung bases do seem better aerated. There is still some residual pneumonia/atelectasis in each lower lobe, however. A followup study would be recommended for continued evaluation. Dictated by: Dictated on workstation # [id number]
--- NOTE | 2017-02-15 11:19 | Physical Therapy Evaluation ---
PT Evaluation-General Medical Diagnosis Admission Date Feb 12, 2017 at 14:13 Medical Diagnosis: Meningitis; pneumonia Onset Date: Feb 12, 2017 Therapy Diagnosis Therapy Diagnosis: weakness; abn gait Height/Weight Height (Feet): 5 Height (Inches): 7.00 Weight (Pounds): 201 Weight (Ounces): 7.0 Precautions Precautions/Isolations: Fall Prevention, Standard Precautions Referral Physician: Yifan Reason for Referral: Evaluation/Treatment Medical History Pertinent Medical History: DM, HTN Additional Medical History asthma Current History Admitted with above diagnosis. Reviewed History: Yes Social History Current Living Status: Spouse Entry Into Home: Stairs With Railing Prior/Core FIM Prior Level of Function Functional [place] Measure 0=Not Assessed/NA 4=Minimal Assistance 1=Total Assistance 5=Supervision or Setup 2=Maximal Assistance 6=Modified [place] 3=Moderate Assistance 7=Complete [place] Bed Mobility: 7 Transfers (B,C,W/C) (FIM): 7 Gait: 7 works at [employer] PT Evaluation-Current Subjective Agrees to PT. Upon initial standing, reports he feels unsteady but as he walked reported he felt stronger. Pain Numeric Pain Scale: 0-No Pain Location: No Pain Reported Objective Patient Orientation: Person, Place, Time, Situation Problem Solving: Good Attachments: IV ROM/Strength ROM Lower Extremities wnl Strenght Lower Extremities WNL Integumentary/Posture Integumentary refer to nursing notes Bowel Incontinence: No Bladder Incontinence: No Posture normal and symmetrical Neuromuscular (Tone, Coordination, Reflexes) intact and functional Sensory Vision: Functional Hearing: Functional Hand Dominance: Right Sensation Right Lower Extremit: Intact Sensation Left Lower Extremity: Intact Transfers Functional [place] Measure 0=Not Assessed/NA 4=Minimal Assistance 1=Total Assistance 5=Supervision or Setup 2=Maximal Assistance 6=Modified [place] 3=Moderate Assistance 7=Complete [place] Transfers (B, C, W/C) (FIM): 5 SBA with initial transfer as he felt unsteady, but did not need assist and as he moved his steadiness improved. Gait Mode of Locomotion: Walk Anticipated Mode of Locomotion: Walk Gait (FIM): 5 Distance (FIM): 3=150 ft Gait Assistive Device: None Comments/Gait Description SBA as he felt unsteady. 1 LOB episode with self correct. Initially, he walked very slowly and was unsteady but as he walked his pace and balance normalized. Balance Sitting Static: Good Sitting Dynamic: Good Standing Static: Good Standing Dynamic: Fair Treatment Gait training and safety Assessment/Needs Pt presents with slight unsteady gait and transfers initially as he has not been out of bed much the past few days. He will benefit from occas ambulation to progress functional mobility and strength. Will see him daily for gait training and promotion of functional activity. EVal of low intensit. 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 Goals Time Frame: Feb 17, 2017 Transfers (B,C,W/C) (FIM): 7 Gait (FIM): 7 PT Plan Problem List Problem List: Activity Tolerance, Functional Strength, Safety, Balance, Gait, Transfer Treatment/Plan Treatment Plan: Continue Plan of Care Treatment Plan: Bed Mobility, Education, Functional Activity Nany, Functional Strength, Gait, Safety, Therapeutic Exercise, Transfers Treatment Duration: Feb 17, 2017 Frequency: 5 times per week Estimated Hrs Per Day: .25 hour per day Patient and/or Family Agrees t: Yes Safety Risks/Education Patient Education: Gait Training, Transfer Techniques, Safety Issues Teaching Recipient: Patient Teaching Methods: Discussion Response to Teaching: Reinforcement Needed Time/GCodes Time In: 1054 Time Out: 1120 Total Billed Treatment Time: 26 Total Billed Treatment vsit EVL 10 GT 16 DARIN ADAM PT Feb 15, 2017 11:19
--- NOTE | 2017-02-15 11:38 | Discharge Summary-Hospitalist ---
Diagnosis/Chief Complaint Date of Admission Feb 12, 2017 at 14:13 Date of Discharge Admission Diagnosis Menningoencephalitis of likely viral etiology continue antibiotics for now and acyclovir prognosis guarded. Hx of diet controlled DMII. Discharge Diagnosis Menninitis of viral etiology s/p antibiotics and acyclovir Hx of diet controlled DMII. 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 Pt states he feels weak Pt confirms working for [employer] Pt confirms Dr. Srinivasan as PCP Pt confirms having a BM yesterday Pt states he has not been hungry so has not been eating well. Pt was advised to start eating so he can speed his recovery Physical exam stable. PT was discussed and will get pt up and to ambulate Pt confirms [facility] as Pharmacy IS discussed and pt will be advised how to use it Plan: Follow up with Dr. Srinivasan Ambulate PT IS DC telemetry Scribed by Susana Echeverria under the direct supervision of Dr. Saha. Discharge Summary Discharge Physical Examination Allergies: Coded Allergies: adhesive tape (Unverified Allergy, Unknown, 05/18/16) Vitals & I&Os Vital Signs Date Time Temp Pulse Resp B/P (MAP) Pulse Ox O2 Delivery O2 Flow Rate FiO2 02/15/17 12:00 97.2 56 20 127/86 96 Room Air 02/15/17 08:00 2.00 Hospital Course Hospital course: patient was admitted to the ICU for presumed meningitis with altered mental status. He actually improved rapidly over the ensuing few days patient was empirically placed on antibiotics in addition to acyclovir and cultures remain negative for bacterial source of meningitis so acyclovir was continued. Infiltrate on chest x-ray was very early in subtle he was fully treated with empiric broad-spectrum antibiotics and nebulizer treatments along with oxygen supplementation. On day of discharge she was afebrile pain was controlled without any headache or any meningeal signs and he will continue on acyclovir 800 MG 5 times daily for an additional 12 days to complete treatment. Overall he had a flat affect at discharge but that was assessed to be chronic and baseline in nature he was able to walk with physical therapy have no deficits and nursing had no concerns about discharge. Labs (last 24 hrs) Laboratory Tests 02/15/17 09:40: White Blood Count 9.7, Red Blood Count 4.11L, Hemoglobin 12.9L, Hematocrit 38L, Mean Corpuscular Volume 92, Mean Corpuscular Hemoglobin 31, Mean Corpuscular Hemoglobin Concent 34, Red Cell Distribution Width 12.6, Platelet Count 128L, Mean Platelet Volume 11.0H, Neutrophils (%) (Auto) 65, Lymphocytes (%) (Auto) 28 , Monocytes (%) (Auto) 7, Eosinophils (%) (Auto) 0, Basophils (%) (Auto) 0, Neutrophils # (Auto) 6.2, Lymphocytes # (Auto) 2.7, Monocytes # (Auto) 0.7, Eosinophils # (Auto) 0.0, Basophils # (Auto) 0.0, Sodium Level 140, Potassium Level 3.6, Chloride Level 112H, Carbon Dioxide Level 23, Anion Gap 5, Blood Urea Nitrogen 10, Creatinine 0.67, Estimat Glomerular Filtration Rate > 60, BUN/ Creatinine Ratio 15, Glucose Level 91, Calcium Level 8.0L, B-Type Natriuretic Peptide 104.4H Microbiology 02/12/17 Blood Culture - Preliminary, Resulted No growth 02/12/17 Gram Stain - Final, Resulted 02/12/17 CSF Culture - Preliminary, Resulted No growth Pending Labs Discharge Home Medications: Active Scripts Active Acyclovir 800 Mg Tablet 800 Mg PO 5XD Reported Ibuprofen 200 Mg Tablet 200 Mg PO Q6H PRN Acetaminophen 325 Mg Tablet 650 Mg PO Q4H PRN Sudogest (Pseudoephedrine HCl) 60 Mg Tablet 60 Mg PO Q6H PRN Fexofenadine HCl 180 Mg Tablet 180 Mg PO DAILY Promethazine-Codeine Syrup (Promethazine HCl/Codeine) 118 Ml Syrup 5 Ml PO Q6H PRN Lisinopril 20 Mg Tablet 20 Mg PO DAILY Instructions to patient/family Please see electonic discharge instructions given to patient. Clinical Quality Measures DVT/VTE Risk/Contraindication: Risk Factor Score Per Nursin RFS Level Per Nursing on Admit: 1=Low/No VTE PPX CORDELIA SAHA DO Feb 15, 2017 11:38
[2017-02-15] MEDS ORDERED: ACYC800T PO (11:41)
[2017-02-15 12:00] VITALS: BP 127/86
--- NOTE | 2017-02-16 07:27 | Physician Query Clarification ---
PQ-Conflicting Diagnosis Admission/Discharge Admission Date: Feb 12, 2017 at 14:13 Discharge Date: Feb 15, 2017 at 15:25 The medical record reflects the following clinical scenario: History/Risk Factors: Viral meningitis, diabetes Clinical Findings: T102.9, P114, R18, WBC's 13.3, BP 114/65, Lactic acid 1.58, CXR New consolidation in rt lung base, headache, confusion Treatment: IV antibiotic Question: Do you agree with the impression of the Sepsis and pneumonia per Dr. Grey. Please document a response below. PHYSICIAN RESPONSE Do you agree w/Consulting Dx?: Yes In responding to this query, please exercise your independent professional judgment. The purpose of this communication is to more accurately reflect the complexity of your patients condition. The fact that a question is asked does not imply that any particular answer is desired or expected. Thank you for your timely response to this clarification. Requestors name: Roly THIS PHYSICIAN QUERY FORM IS A PERMANENT PART OF THE MEDICAL RECORD ROLY QUINTERO Feb 16, 2017 07:27 CORDELIA PARISI DO Feb 16, 2017 08:49
--- NOTE | 2017-02-16 07:55 | Physician Query Clarification ---
PQ-Further Specificity Admission/Discharge Admission Date: Feb 12, 2017 at 14:13 Discharge Date: Feb 15, 2017 at 15:25 The medical record reflects the following clinical scenario: History/Risk Factors: Diabetes Clinical Findings: Headache, confusion, unresponsive Treatment: IV ABX, acyclovir Question: Can you further clarify the PDX? Does the patient have viral encephalomeningitis or viral meningitis per the clinical indicators above? Please document below. 1. Acute viral meningitis 2. Acute viral encephalomeningitis 3. Other, with explanation of the clinical findings. 4. Clinically undetermined, no explanation for the clinical findings. PHYSICIAN RESPONSE Can you specify per above: 1 In responding to this query, please exercise your independent professional judgment. The purpose of this communication is to more accurately reflect the complexity of your patients condition. The fact that a question is asked does not imply that any particular answer is desired or expected. Thank you for your timely response to this clarification. Requestors name: Roly THIS PHYSICIAN QUERY FORM IS A PERMANENT PART OF THE MEDICAL RECORD ROLY QUINTERO Feb 16, 2017 07:55 CORDELIA PARISI DO Feb 16, 2017 08:50
[2017-02-16 08:03] LABS: CSF ENTEROVIRUS RT-PCR Not Detected
[2017-02-17 06:51] LABS: WNCSFIGGC 1.04 IV (<=1.29); WNCSFIGMC 5.97 IV (<=0.89)
== END 2017-02-15 15:25 | disposition home or self-care (01) | DRG 871 ==
LOC: EDUNIT# 09:24 → ER 09:25 → ICU 14:13 → 4TH 02-13 12:15
PROVIDERS: ADMIT Internal Medicine; ATTEND Internal Medicine
PROC: 009U3ZX Drainage of Spinal Canal, Percutaneous Approach, Diagnostic (ICD-10-PCS; principal; 2017-02-12)
DX: A41.89 Other specified sepsis (principal); B97.89 Other viral agents as the cause of diseases classified elsewhere; A87.9 Viral meningitis, unspecified; J18.9 Pneumonia, unspecified organism; E11.9 Type 2 diabetes mellitus without complications; I10 Essential (primary) hypertension; G47.30 Sleep apnea, unspecified; J45.909 Unspecified asthma, uncomplicated; Z87.891 Personal history of nicotine dependence
CPT/HCPCS: 36415; 70450; 71010; 80048; 80053; 80202; 82945; 83605; 83735; 83880; 84100; 84157; 85025; 86788; 86789; 87040; 87070; 87205; 87498; 87529; 87899; 89051; 94664; 96365

== ENCOUNTER 2017-02-19 19:24 | Emergency (ER) | payer BC ==
[~2017-02-19] VITALS: Ht 170.2 cm; Wt 86.2 kg
[~2017-02-19 19:24] MED LIST changes: +ACET325T49 PO; +ACYC800T PO; +CODE118S2 PO; +DOXY100C2 PO; +FEXO-46 PO; +IBUP-2055 PO; +LISI-552 PO; +MONT10TA24 PO; +PRD50T PO; +PSEU60TA20 PO
[2017-02-19] MEDS ORDERED: ONDANSETRON 4 MG/2 ML (SDV) Z0FRAN IVP ONE (20:00)
[2017-02-19 20:02] LABS: BILIRUBIN,URINE NEGATIVE (NEGATIVE); KETONES,URINE 1+ (NEGATIVE); LEUKOCYTE ESTERASE ,URINE NEGATIVE (NEGATIVE); NITRITE,URINE NEGATIVE (NEGATIVE); PH,URINE 7 (5-9); PROTEIN,URINE 1+ (NEGATIVE); UROBILINOGEN,URINE NORMAL (NORMAL)
[2017-02-19 20:09] LABS: SQUAMOUS EPITHELIAL CELL,UR 0-2 /HPF
[2017-02-19 20:14] LABS: BASOPHILS % (AUTO) 0 % (0-10); EOSINOPHILS % (AUTO) 0 % (0-10); LYMPHOCYTES # (AUTO) 1.6 X 10^3 (1.0-4.0); LYMPHOCYTES % (AUTO) 15 % (12-44); MEAN CORPUSCULAR HEMOGLOBIN 31 PG (25-34); MEAN CORPUSCULAR HGB CONC 34 G/DL (32-36); MEAN CORPUSCULAR VOLUME 91 FL (80-99); MONOCYTES % (AUTO) 9 % (0-12); NEUTROPHILS # (AUTO) 8.1 X 10^3 (1.8-7.8); NEUTROPHILS % (AUTO) 76 % (42-75); PLATELET COUNT 223 10^3/uL (130-400); RED BLOOD COUNT 5.33 10^6/uL (4.35-5.85); WHITE BLOOD COUNT 10.7 10^3/uL (4.3-11.0)
--- NOTE | 2017-02-19 20:23 | ED General ---
General Chief Complaint: Abdominal/GI Problems Stated Complaint: VOMITING NOT EATING Nursing Triage Note: reports was discharged from this hospital on the 16 of February. Patient reports starting to have vomiting that night and has continued to have n/v with increased weakness Nursing Sepsis Screen: No Definite Risk Source of Information: Patient, Family Exam Limitations: No Limitations History of Present Illness Time Seen by Provider: 20:20 Initial Comments To ER By his with reports of vomiting and not eating. Patient was discharged from the hospital on 16 February with a diagnosis of viral meningoencephalitis. He was given acyclovir to go home with the patient states that anytime he takes this medication which is 5 times per day he gets nauseated and vomits. He's not been able to eat or drink because of the nausea and vomiting. He states that he remains afebrile and has not had any fevers since the day before discharge which would be 15 February. A few days before that he was here in the emergency room and had a lumbar puncture done which showed evidence of meningitis/encephalitis and his West Nile virus IgM came back positive. He states his headaches are better but still present. Neck pain is now gone. He has general weakness however. reports that he does have a persistent week raspy voice since leaving the hospital. Timing/Duration: 1-2 Days Severity: Moderate Associated Systoms: No Fever/Chills, Nausea/Vomiting Allergies and Home Medications Allergies Coded Allergies: adhesive tape (Unverified Allergy, Unknown, 05/18/16) Home Medications Acetaminophen 325 Mg Tablet, 650 MG PO Q4H PRN for FEVER, (Reported) Acyclovir 800 Mg Tablet, 800 MG PO 5XD, #60 Prescribed by: CORDELIA PARISI on 02/15/17 1141 Fexofenadine HCl 180 Mg Tablet, 180 MG PO DAILY, (Reported) Ibuprofen 200 Mg Tablet, 200 MG PO Q6H PRN for PAIN-MILD, (Reported) Lisinopril 20 Mg Tablet, 20 MG PO DAILY, (Reported) Promethazine HCl/Codeine 118 Ml Syrup, 5 ML PO Q6H PRN for COUGH, (Reported) Pseudoephedrine HCl 60 Mg Tablet, 60 MG PO Q6H PRN for CONGESTION, (Reported) Constitutional: see HPI EENTM: see HPI Respiratory: no symptoms reported Cardiovascular: no symptoms reported Genitourinary: no symptoms reported Musculoskeletal: no symptoms reported Skin: no symptoms reported Psychiatric/Neurological: Headache Hematologic/Lymphatic: No Symptoms Reported Immunological/Allergic: no symptoms reported Past Dvscclt-Fqkekz-Ebhccd Hx Patient Social History Alcohol Use: Denies Use Recreational Drug Use: No Smoking Status: Former Smoker Former Smoker, Quit: May 18, 1980 Recent Foreign Travel: No Contact w/Someone Who Travel: No Recent Infectious Disease Expo: No Recent Hopitalizations: No Immunizations Up To Date Date of Influenza Vaccine: Apr 17, 2016 Seasonal Allergies Seasonal Allergies: No Surgeries History of Surgeries: Yes (RIGHT HAND SURGERY FOR INFECTION) Respiratory History of Respiratory Disorde: Yes Respiratory Disorders: Sleep Apnea Currently Using CPAP: Yes Currently Using BIPAP: No Cardiovascular History of Cardiac Disorders: Yes Cardiac Disorders: Hypertension Neurological History of Neurological Disord: Yes Reproductive System Hx Reproductive Disorders: No Genitourinary History of Genitourinary Disor: No Gastrointestinal History of Gastrointestinal Di: No Musculoskeletal History of Musculoskeletal Dis: No Endocrine History of Endocrine Disorders: Yes HEENT History of HEENT Disorders: No Cancer History of Cancer: No Psychosocial History of Psychiatric Problem: No Integumentary History of Skin or Integumenta: Yes Skin/Integumentary Disorders: Psoriasis Blood Transfusions History of Blood Disorders: No Family Medical History Family Medial History: Diabetes mellitus 19 MOTHER Hypertension 19 MOTHER Physical Exam Vital Signs Vital Sign - Last 12Hours 02/19/17 19:35 Temp 98.4 Pulse 82 Resp 18 B/P (MAP) 117/88 Pulse Ox 96 Capillary Refill : Less Than 3 Seconds General Appearance: No Apparent Distress, WD/WN Eyes: Bilateral Eye Normal Inspection, Bilateral Eye PERRL, Bilateral Eye EOMI HEENT: PERRL/EOMI, TMs Normal Neck: Full Range of Motion, Normal Inspection Respiratory: No Accessory Muscle Use, No Respiratory Distress Gastrointestinal: Non Tender, Soft Extremity: Normal Capillary Refill, Normal Inspection Neurologic/Psychiatric: Alert, Oriented x3 Skin: Normal Color, Warm/Dry Comments He is alert and oriented, pleasant, reports current nausea but is not vomiting. Afebrile. Progress/Results/Core Measures Results/Orders Lab Results Laboratory Tests Test 02/19/17 19:55 02/19/17 20:05 Range/Units Urine Color YELLOW Urine Clarity VERY CLOUDY H Urine pH 7 5-9 Urine Specific [place] 1.015 L 1.016-1.022 Urine Protein 1+ H NEGATIVE Urine Glucose (UA) NEGATIVE NEGATIVE Urine Ketones 1+ H NEGATIVE Urine Nitrite NEGATIVE NEGATIVE Urine Bilirubin NEGATIVE NEGATIVE Urine Urobilinogen NORMAL NORMAL MG/DL Urine Leukocyte Esterase NEGATIVE NEGATIVE Urine RBC (Auto) 1+ H NEGATIVE Urine RBC NONE /HPF Urine WBC NONE /HPF Urine Squamous Epithelial Cells 0-2 /HPF Urine Crystals PRESENT H /LPF Urine Amorphous Sediment LARGE JAMISON URATES H /LPF Urine Bacteria NONE /HPF Urine Casts NONE /LPF Urine Mucus NEGATIVE /LPF Urine Culture Indicated NO White Blood Count 10.7 4.3-11.0 10^3/uL Red Blood Count 5.33 4.35-5.85 10^6/uL Hemoglobin 16.6 # 13.3-17.7 G/DL Hematocrit 48 40-54 % Mean Corpuscular Volume 91 80-99 FL Mean Corpuscular Hemoglobin 31 25-34 PG Mean Corpuscular Hemoglobin Concent 34 32-36 G/DL Red Cell Distribution Width 13.0 10.0-14.5 % Platelet Count 223 130-400 10^3/uL Mean Platelet Volume 11.0 H 7.4-10.4 FL Neutrophils (%) (Auto) 76 H 42-75 % Lymphocytes (%) (Auto) 15 12-44 % Monocytes (%) (Auto) 9 0-12 % Eosinophils (%) (Auto) 0 0-10 % Basophils (%) (Auto) 0 0-10 % Neutrophils # (Auto) 8.1 H 1.8-7.8 X 10^3 Lymphocytes # (Auto) 1.6 1.0-4.0 X 10^3 Monocytes # (Auto) 1.0 0.0-1.0 X 10^3 Eosinophils # (Auto) 0.0 0.0-0.3 10^3/uL Basophils # (Auto) 0.0 0.0-0.1 10^3/uL Erythrocyte Sedimentation Rate 9 0-30 MM/HR Sodium Level 136 135-145 MMOL/L Potassium Level 4.0 3.6-5.0 MMOL/L Chloride Level 101 98-107 MMOL/L Carbon Dioxide Level 22 21-32 MMOL/L Anion Gap 13 5-14 MMOL/L Blood Urea Nitrogen 15 7-18 MG/DL Creatinine 0.94 0.60-1.30 MG/DL Estimat Glomerular Filtration Rate > 60 BUN/Creatinine Ratio 16 Glucose Level 104 70-105 MG/DL Calcium Level 9.9 8.5-10.1 MG/DL Total Bilirubin 1.2 H 0.1-1.0 MG/DL Aspartate Amino Transf (AST/SGOT) 26 5-34 U/L Alanine Aminotransferase (ALT/SGPT) 31 0-55 U/L Alkaline Phosphatase 87 40-136 U/L Myoglobin 64.8 10.0-92.0 NG/ML C-Reactive Protein High Sensitivity 1.00 H 0.00-0.50 MG/DL Total Protein 8.5 H 6.4-8.2 GM/DL Albumin 4.2 3.2-4.5 GM/DL My Orders Orders - MADHURI REYES APRN Cbc With Automated Diff (02/19/17 19:46) Comprehensive Metabolic Panel (02/19/17 19:46) Ua Culture If Indicated (02/19/17 19:46) Erythrocyte Sedimentation Rate (02/19/17 19:46) Hs C Reactive Protein (02/19/17 19:46) Saline Lock/Iv-Start (02/19/17 19:46) Chest Pa/Lat (2 View) (02/19/17 19:46) Ondansetron Injection (Zofran Injectio (02/19/17 20:00) Myoglobin Serum (02/19/17 20:02) Lactated Ringers (Lr 1000 Ml Iv Solution (02/19/17 20:30) Ketorolac Injection (Toradol Injection) (02/19/17 20:30) Medications Given in ED Current Medications Medications Dose Ordered Sig/Radha Route Start Time Stop Time Status Last Admin Dose Admin Ketorolac Tromethamine 30 mg ONCE ONCE IVP 02/19/17 20:30 02/19/17 20:31 DC 02/19/17 20:24 30 MG Ondansetron HCl 8 mg ONCE ONCE IVP 02/19/17 20:00 02/19/17 20:01 DC 02/19/17 20:06 8 MG Vital Signs/I&O Vital Sign - Last 12Hours 02/19/17 19:35 Temp 98.4 Pulse 82 Resp 18 B/P (MAP) 117/88 Pulse Ox 96 Blood Pressure Mean: 98 Diagnostic Imaging Diagonstic Imaging: Xray Plain Films/CT/US/NM/MRI: chest Comments NAME: [facility] REC#: [id number] PT STATUS: REG ER : 1955 PHYSICIAN: MADHURI REYES MOTTLER MACHINE FEEDER ADMIT DATE: 02/19/17/ER Draft Date of Exam:02/19/17 CHEST PA/LAT (2 VIEW) EXAMINATION: PA and lateral chest compared with the prior study from February 15, 2017 INDICATION: Weakness. Vomiting. FINDINGS: There is a small degree of linear atelectasis at the right lung base. Lung bases are otherwise clear. There is no pleural effusion evident. There is no pneumothorax. Heart size and mediastinal contours are appropriate. Pulmonary vascularity appears within normal limits. No osseous abnormality is evident. IMPRESSION: 1. Small degree of a right lung base atelectasis. Lungs otherwise clear. There is no evidence of failure. There is no effusion or pneumothorax. Dictated on workstation # [id number] Dict: 02/19/172029 Trans: 02/19/172043 [facility] [id number] Interpreted by: BAYLEE REES MD Electronically signed by: Departure Impression Impression: Primary Impression: West Nile fever meningoencephalitis Disposition: HOME, SELF-CARE Condition: Stable Departure-Patient Inst. Decision time for Depature: 20:50 Referrals: BIBI ARMAS MD (PCP/Family) Primary Care Physician Patient Instructions: West Nile Virus Add. Discharge Instructions: 1. Return to ER for any concerns 2. Follow-up with your doctor next week 3. All discharge instructions reviewed with patient and/or family. Voiced understanding. Scripts Ondansetron (Zofran Odt) 4 Mg Tab.rapdis 4 MG PO Q4H Y for NAUSEA/VOMITING-1ST LINE, #10 TAB Prov: MADHURI REYES MOTTLER MACHINE FEEDER 02/19/17 MADHURI REYES MOTTLER MACHINE FEEDER Feb 19, 2017 20:23
[2017-02-19] MEDS ORDERED: KETOROLAC 30 MG/ML VIAL IVP ONE (20:30)
[2017-02-19] MEDS ORDERED: LACTATED RINGERS 1,000 ML IV SCH (20:30)
[2017-02-19 20:32] LABS: ERYTHROCYTE SEDIMENTATION RATE 9 MM/HR (0-30)
[2017-02-19 20:33] LABS: ALANINE AMINOTRANSFERASE 31 U/L (0-55); ALBUMIN 4.2 GM/DL (3.2-4.5); ANION GAP 13 MMOL/L (5-14); ASPARTATE AMINO TRANSFERASE 26 U/L (5-34); BILIRUBIN,TOTAL 1.2 MG/DL (0.1-1.0); BLOOD UREA NITROGEN 15 MG/DL (7-18); BUN/CREATININE RATIO 16; CALCIUM 9.9 MG/DL (8.5-10.1); CARBON DIOXIDE 22 MMOL/L (21-32); CHLORIDE 101 MMOL/L (98-107); CREATININE SERUM 0.94 MG/DL (0.60-1.30); GFR ESTIMATED > 60; GLUCOSE 104 MG/DL (70-105); SODIUM 136 MMOL/L (135-145); TOTAL PROTEIN 8.5 GM/DL (6.4-8.2)
[2017-02-19 20:39] LABS: MYOGLOBIN SERUM 64.8 NG/ML (10.0-92.0)
--- NOTE | 2017-02-19 20:44 | Diagnostic Imaging Report ---
EXAMINATION: PA and lateral chest compared with the prior study from February 15, 2017 INDICATION: Weakness. Vomiting. FINDINGS: There is a small degree of linear atelectasis at the right lung base. Lung bases are otherwise clear. There is no pleural effusion evident. There is no pneumothorax. Heart size and mediastinal contours are appropriate. Pulmonary vascularity appears within normal limits. No osseous abnormality is evident. IMPRESSION: 1. Small degree of a right lung base atelectasis. Lungs otherwise clear. There is no evidence of failure. There is no effusion or pneumothorax. Dictated by: Dictated on workstation # [id number]
[2017-02-19] MEDS ORDERED: ONDA4TAB8 PO (20:52)
[2017-02-19] MEDS ORDERED: RX-ONDANSETRON 4 MG ODT (ZOFRAN) PPK #4 PO STA (20:52)
[2017-02-19 21:27] VITALS: BP 116/79
== END 2017-02-19 21:28 | disposition home or self-care (01) ==
LOC: EDUNIT# 19:24 → ER 19:26
DX: G04.90 Encephalitis and encephalomyelitis, unspecified (principal); G47.30 Sleep apnea, unspecified; I10 Essential (primary) hypertension; Z87.2 Personal history of diseases of the skin and subcutaneous tissue; Z87.891 Personal history of nicotine dependence
CPT/HCPCS: 36415; 71020; 80053; 81000; 83874; 85025; 85652; 86141; 96361; 96374; 96375

== ENCOUNTER → 2017-03-07 | Outpatient (CLI) | payer BC ==
[~2017-03-07] MED LIST changes: +ONDA4TAB8 PO
--- NOTE | 2017-03-07 11:05 | Diagnostic Imaging Report ---
INDICATION: PLEURISY WITH EFFUSION DYSPNEA ALLERGIC RHINITIS COMPARISON: 02/19/2017. FINDINGS: Frontal and lateral views of the chest demonstrate normal heart size and pulmonary vascularity. The lungs are clear. There are no signs of infiltrate, pleural effusions or pneumothoraces. The visualized osseous structures show no acute abnormalities. IMPRESSION: 1. No acute process. No signs of infiltrates, effusions or pneumothoraces. Dictated by: Dictated on workstation # [id number]
== END ==
LOC: RAD 10:40
PROVIDERS: ATTEND Nurse Practitioner Family
DX: R06.00 Dyspnea, unspecified (principal); J30.9 Allergic rhinitis, unspecified
CPT/HCPCS: 71020

== ENCOUNTER 2019-03-04 11:26 | Emergency (ER) | payer BC, OTHER ==
[~2019-03-04] VITALS: Ht 170.1 cm; Wt 136.0 kg
[~2019-03-04 11:26] MED LIST changes: -CODE118S2 PO; +CODE118S4 PO
[2019-03-04 11:51] LABS: BASOPHILS % (AUTO) 0 % (0-10); EOSINOPHILS # (AUTO) 0.1 10^3/uL (0.0-0.3); EOSINOPHILS % (AUTO) 2 % (0-10); HEMATOCRIT 42 % (40-54); LYMPHOCYTES # (AUTO) 2.2 X 10^3 (1.0-4.0); LYMPHOCYTES % (AUTO) 34 % (12-44); MEAN CORPUSCULAR HEMOGLOBIN 31 PG (25-34); MEAN CORPUSCULAR HGB CONC 34 G/DL (32-36); MEAN CORPUSCULAR VOLUME 92 FL (80-99); MONOCYTES # (AUTO) 0.6 X 10^3 (0.0-1.0); MONOCYTES % (AUTO) 9 % (0-12); NEUTROPHILS # (AUTO) 3.7 X 10^3 (1.8-7.8); NEUTROPHILS % (AUTO) 56 % (42-75); PLATELET COUNT 153 10^3/uL (130-400); RED CELL DISTRIBUTION WIDTH 13.2 % (10.0-14.5); WHITE BLOOD COUNT 6.7 10^3/uL (4.3-11.0)
[2019-03-04] MEDS ORDERED: IOHEXOL 350 MG/ML 100 ML (OMNIPAQUE 350) VIAL IV ONE (12:00)
[2019-03-04] MEDS ORDERED: NS 100 ML (IVPB) BAG IV ONE (12:00)
[2019-03-04] MEDS ORDERED: HOLD METFORMIN - RECEIVED CONTRAST 20 ML VIAL IV SCH (12:00)
--- NOTE | 2019-03-04 12:06 | ED Fall/Injury ---
General Chief Complaint: Trauma POV Arrival Activation Stated Complaint: FALL;NECK PAIN Source: patient Exam Limitations: no limitations History of Present Illness Date Seen by Provider: Mar 04, 2019 Time Seen by Provider: 12:03 Initial Comments To ER per private vehicle with reports of a fall from about 4 feet up on a ladder. He landed on his head while wearing a hardhat. Complains of pain to the right posterior angle of the mandible, complains of headache. He is not on anticoagulation. Also has some pain to the left side of the sternum of her chest. He did not lose consciousness. Occurred: just prior to arrival Severity: moderate Injuries/Pain Location: head, face, chest Context: slipped Loss of Consciousness: no loss of consciousness Associated Symptoms (Fall): Headache; No Neck Pain Allergies and Home Medications Allergies Coded Allergies: adhesive tape (Unverified Allergy, Unknown, 05/18/16) Home Medications Acetaminophen 325 Mg Tablet, 650 MG PO Q4H PRN for FEVER, (Reported) Acyclovir 800 Mg Tablet, 800 MG PO 5XD Prescribed by: CORDELIA PARISI on 02/15/17 1141 Fexofenadine HCl 180 Mg Tablet, 180 MG PO DAILY, (Reported) Ibuprofen 200 Mg Tablet, 200 MG PO Q6H PRN for PAIN-MILD, (Reported) Lisinopril 20 Mg Tablet, 20 MG PO DAILY, (Reported) Ondansetron 4 Mg Tab.rapdis, 4 MG PO Q4H PRN for NAUSEA/VOMITING-1ST LINE Prescribed by: MADHURI REYES on 02/19/172051 Promethazine HCl/Codeine 118 Ml Syrup, 5 ML PO Q6H PRN for COUGH, (Reported) Pseudoephedrine HCl 60 Mg Tablet, 60 MG PO Q6H PRN for CONGESTION, (Reported) Patient Home Medication List Home Medication List Reviewed: Yes Review of Systems Review of Systems Constitutional: see HPI Eyes: See HPI Ears, Nose, Mouth, Throat: no symptoms reported Respiratory: no symptoms reported Cardiovascular: see HPI, chest pain Genitourinary: no symptoms reported Musculoskeletal: no symptoms reported Skin: no symptoms reported Psychiatric/Neurological: No Symptoms Reported, Headache Past Wwwvfqd-Dzfufi-Coaclw Hx Patient Social History Former Smoker, Quit: May 18, 1980 Recent Foreign Travel: No Contact w/Someone Who Travel: No Recent Hopitalizations: No Immunizations Up To Date Date of Influenza Vaccine: Apr 17, 2016 Seasonal Allergies Seasonal Allergies: No Past Medical History Surgeries: Yes (RIGHT HAND SURGERY FOR INFECTION) Respiratory: Yes Sleep Apnea Currently Using CPAP: Yes Currently Using BIPAP: No Cardiac: Yes Hypertension Neurological: Yes Reproductive Disorders: No Genitourinary: No Gastrointestinal: No Musculoskeletal: No Endocrine: Yes HEENT: No Cancer: No Psychosocial: No Integumentary: Yes Psoriasis Blood Disorders: No Family Medical History Diabetes mellitus 19 MOTHER Hypertension 19 MOTHER Physical Exam Vital Signs Capillary Refill : Height, Weight, BMI Height: 5'7.00" Weight: 190lbs. 7.0oz. 86.460647oo; 30.9 BMI Method:Stated General Appearance: WD/WN, no apparent distress HEENT: PERRL/EOMI, normal ENT inspection, TMs normal, other (opening and closing the jaw does worsen the pain at the posterior angle of the jaw on the right but he is able to do so. There is no obvious deformity or swelling.) Neck: non-tender, full range of motion; No tender lateral, No tender midline Cardiovascular: regular rate, rhythm, no murmur Respiratory: lungs clear, normal breath sounds, no respiratory distress, no accessory muscle use, other (the left sternal border third rib tenderness palpation) Gastrointestinal: normal bowel sounds, non tender, soft; No tenderness Back: normal inspection, no CVA tenderness, no vertebral tenderness Extremities: normal range of motion, non-tender Neurologic/Psychiatric: alert, normal mood/affect, oriented x 3 Skin: normal color, warm/dry Eagle Coma Score Best Eye Response: (4) Open Spontaneously Best Verbal Response: (5) Oriented Best Motor Response: (6) Obeys Commands Eagle Total: 15 Progress/Results/Core Measures Results/Orders Lab Results Laboratory Tests Test 03/04/19 11:40 Range/Units White Blood Count 6.7 4.3-11.0 10^3/uL Red Blood Count 4.54 4.35-5.85 10^6/uL Hemoglobin 14.0 13.3-17.7 G/DL Hematocrit 42 40-54 % Mean Corpuscular Volume 92 80-99 FL Mean Corpuscular Hemoglobin 31 25-34 PG Mean Corpuscular Hemoglobin Concent 34 32-36 G/DL Red Cell Distribution Width 13.2 10.0-14.5 % Platelet Count 153 130-400 10^3/uL Mean Platelet Volume 12.0 H 7.4-10.4 FL Neutrophils (%) (Auto) 56 42-75 % Lymphocytes (%) (Auto) 34 12-44 % Monocytes (%) (Auto) 9 0-12 % Eosinophils (%) (Auto) 2 0-10 % Basophils (%) (Auto) 0 0-10 % Neutrophils # (Auto) 3.7 1.8-7.8 X 10^3 Lymphocytes # (Auto) 2.2 1.0-4.0 X 10^3 Monocytes # (Auto) 0.6 0.0-1.0 X 10^3 Eosinophils # (Auto) 0.1 0.0-0.3 10^3/uL Basophils # (Auto) 0.0 0.0-0.1 10^3/uL Sodium Level 140 135-145 MMOL/L Potassium Level 4.0 3.6-5.0 MMOL/L Chloride Level 109 H 98-107 MMOL/L Carbon Dioxide Level 25 21-32 MMOL/L Anion Gap 6 5-14 MMOL/L Blood Urea Nitrogen 13 7-18 MG/DL Creatinine 0.92 0.60-1.30 MG/DL Estimat Glomerular Filtration Rate > 60 BUN/Creatinine Ratio 14 Glucose Level 117 H 70-105 MG/DL Calcium Level 9.4 8.5-10.1 MG/DL My Orders Orders - MADHURI REYES APRN Cbc With Automated Diff (03/04/19 11:31) Ct Chest W (03/04/19 11:31) Ct Head/Face/Cervical Wo (03/04/19 11:31) Iohexol Injection (Omnipaque 350 Mg/Ml 1 (03/04/19 12:00) Received Contrast (Hold Metformin- Contr (03/04/19 12:00) Ns (Ivpb) (Sodium Chloride 0.9% Ivpb Bag (03/04/19 12:00) Basic Metabolic Panel (03/04/19 11:55) Wrist, Right, 3 Views Or More (03/04/19 12:38) Elbow, Right, 3 Views (03/04/19 12:40) Ibuprofen Tablet (Motrin Tablet) (03/04/19 13:30) Departure Communication (Admissions) CT reviewed and cervical collar removed at 1241 Impression Primary Impression: Elbow strain Qualified Codes: S46.912A - Strain of unspecified muscle, fascia and tendon at shoulder and upper arm level, left arm, initial encounter Additional Impressions: Wrist sprain Qualified Codes: S63.502A - Unspecified sprain of left wrist, initial encounter Concussion Qualified Codes: S06.0X0A - Concussion without loss of consciousness, initial encounter Disposition: 01 HOME, SELF-CARE Condition: Stable Departure-Patient Inst. Decision time for Depature: 13:18 Referrals: BIBI ARMAS MD (PCP/Family) Primary Care Physician Patient Instructions: Common Wrist Injuries, Concussion in Adults Add. Discharge Instructions: 1. Tylenol and Motrin for pain control 2. Return to ER for any concerns 3. All discharge instructions reviewed with patient and/or family. Voiced understanding. MADHURI REYES TRANSITION MGR RN Mar 04, 2019 12:06
[2019-03-04 12:10] LABS: BUN/CREATININE RATIO 14; CALCIUM 9.4 MG/DL (8.5-10.1); CARBON DIOXIDE 25 MMOL/L (21-32); CHLORIDE 109 MMOL/L (98-107); CREATININE SERUM 0.92 MG/DL (0.60-1.30); GFR ESTIMATED > 60; GLUCOSE 117 MG/DL (70-105); SODIUM 140 MMOL/L (135-145)
--- NOTE | 2019-03-04 12:33 | Diagnostic Imaging Report ---
PROCEDURE: CT head, face, and cervical spine without contrast. TECHNIQUE: Multiple contiguous axial images were obtained through the head, neck, and facial bones without the use of intravenous contrast. Sagittal and coronal reformations through the cervical spine and facial bones were also performed. Auto Exposure Controls were utilized during the CT exam to meet ALARA standards for radiation dose reduction. INDICATION: Fall off of a ladder. Posterior head and neck pain. COMPARISON: Comparison is made with prior head CT from 02/12/2017. CT HEAD: The ventricles and sulci are within normal limits. No sulcal effacement or midline shift is detected. No acute intra-axial or extra-axial hemorrhage is detected. Cisterns are patent. Visualized paranasal sinuses are clear. IMPRESSION: No acute intracranial process is detected. CT FACIAL BONES: The mandible is intact. The zygomatic arches are intact. Maxillary sinus conway are intact. No nasal bone fracture is seen. Orbital conway appear to be intact. Both globes are unremarkable. IMPRESSION: No facial bone fracture is identified. CT CERVICAL SPINE: Curvature and alignment of the cervical spine is normal. There is degenerative disc disease at C5-6 and C6-7 levels with disc space narrowing and marginal spurring. No fractures are seen. Prevertebral tissues are normal. Odontoid is intact. IMPRESSION: Cervical spondylosis. No acute bony abnormality is detected. Dictated by: Dictated on workstation # [id number]
--- NOTE | 2019-03-04 12:36 | Diagnostic Imaging Report ---
PROCEDURE: CT chest with contrast only. TECHNIQUE: Multiple contiguous axial images were obtained through the chest after administration of intravenous contrast. Auto Exposure Controls were utilized during the CT exam to meet ALARA standards for radiation dose reduction. INDICATION: Fall off a ladder, complaining of sternum pain. COMPARISON: Comparison is made with prior CT chest from 02/11/2017. FINDINGS: No definite mediastinal hematoma or great vessel injury is seen. No pericardial or pleural fluid is detected. No pulmonary contusion or pneumothorax is seen. There is some scarring or atelectasis in the left lower lobe. Bony structures are nonacute. Specifically, no sternal fracture is identified. Multilevel degenerative changes throughout the thoracic spine are noted. IMPRESSION: No acute abnormality is detected. Dictated by: Dictated on workstation # [id number]
--- NOTE | 2019-03-04 12:36 | NUR ---
Pt now complaining of R wrist pain and bruising. Pt given ice pack and Truman Sykes notified.
--- NOTE | 2019-03-04 12:41 | NUR ---
c collar removed by Truman Sykes at this time
--- NOTE | 2019-03-04 13:02 | Diagnostic Imaging Report ---
PATIENT HISTORY: Fall, right wrist pain. TECHNIQUE: 3 views of the right wrist COMPARISON: None FINDINGS: No acute fracture or dislocation is seen in the right wrist. Alignment appears normal. Joint spaces are preserved. IMPRESSION: No acute osseous abnormality is seen in the right wrist. Dictated by: Dictated on workstation # [id number]
--- NOTE | 2019-03-04 13:02 | Diagnostic Imaging Report ---
PATIENT HISTORY: Fall, right elbow injury. TECHNIQUE: 3 views of the right elbow COMPARISON: None FINDINGS: No acute fracture or dislocation is seen in the right elbow. Alignment is normal. There are degenerative changes in the right elbow including small osteophytes at the radial head and a prominent enthesophyte at the olecranon. No joint effusion is seen. IMPRESSION: 1. Degenerative changes in the right elbow with no acute osseous abnormality seen. Dictated by: Dictated on workstation # [id number]
[2019-03-04] MEDS ORDERED: IBUPROFEN 800 MG (MOTRIN) TAB PO ONE (13:30)
[2019-03-04 13:32] VITALS: BP 118/77
== END 2019-03-04 13:34 | disposition home or self-care (01) ==
LOC: EDUNIT# 11:26 → ER 11:27
DX: S06.0X0A Concussion without loss of consciousness, initial encounter (principal); S63.502A Unspecified sprain of left wrist, initial encounter; S46.912A Strain of unspecified muscle, fascia and tendon at shoulder and upper arm level, left arm, initial encounter; G47.30 Sleep apnea, unspecified; I10 Essential (primary) hypertension; R40.2142 Coma scale, eyes open, spontaneous, at arrival to emergency department; R40.2252 Coma scale, best verbal response, oriented, at arrival to emergency department; R40.2362 Coma scale, best motor response, obeys commands, at arrival to emergency department; Z88.8 Allergy status to other drugs, medicaments and biological substances; Z82.49 Family history of ischemic heart disease and other diseases of the circulatory system; W11.XXXA Fall on and from ladder, initial encounter
CPT/HCPCS: 36415; 70450; 70486; 71260; 72125; 73080; 73110; 80048; 85025

== ENCOUNTER 2019-08-06 17:23 | Emergency (ER) | payer SELFPAY ==
[~2019-08-06] VITALS: Ht 168 cm; Wt 96.0 kg
[~2019-08-06 17:23] MED LIST changes: -IBUP-2055 PO; +IBUP-2473 PO; -PSEU60TA20 PO; +PSEU60TA21 PO
[2019-08-06] MEDS ORDERED: TETANUS,DIPTH,PERTUSS P/F (BOOSTRIX) 0.5 ML VIAL IM ONE (18:15)
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
[2019-08-06 18:58] LABS: BASOPHILS % (AUTO) 0 % (0-10); EOSINOPHILS # (AUTO) 0.1 10^3/uL (0.0-0.3); EOSINOPHILS % (AUTO) 1 % (0-10); HEMATOCRIT 42 % (40-54); HEMOGLOBIN 14.4 G/DL (13.3-17.7); LYMPHOCYTES # (AUTO) 1.8 X 10^3 (1.0-4.0); LYMPHOCYTES % (AUTO) 19 % (12-44); MEAN CORPUSCULAR HEMOGLOBIN 31 PG (25-34); MEAN CORPUSCULAR HGB CONC 34 G/DL (32-36); MEAN CORPUSCULAR VOLUME 91 FL (80-99); MEAN PLATELET VOLUME 11.7 FL (7.4-10.4); MONOCYTES # (AUTO) 0.6 X 10^3 (0.0-1.0); MONOCYTES % (AUTO) 7 % (0-12); NEUTROPHILS # (AUTO) 6.9 X 10^3 (1.8-7.8); NEUTROPHILS % (AUTO) 73 % (42-75); PLATELET COUNT 150 10^3/uL (130-400); RED CELL DISTRIBUTION WIDTH 12.8 % (10.0-14.5); WHITE BLOOD COUNT 9.5 10^3/uL (4.3-11.0)
[2019-08-06] MEDS ORDERED: ACETAMINOPHEN 325 MG TABLET PO STA (19:04)
[2019-08-06 19:18] LABS: ALANINE AMINOTRANSFERASE 48 U/L (0-55); ALBUMIN 4.2 GM/DL (3.2-4.5); ALKALINE PHOSPHATASE 95 U/L (40-136); BILIRUBIN,TOTAL 0.3 MG/DL (0.1-1.0); BUN/CREATININE RATIO 18; CALCIUM 9.2 MG/DL (8.5-10.1); CARBON DIOXIDE 17 MMOL/L (21-32); CHLORIDE 109 MMOL/L (98-107); CREATININE SERUM 0.92 MG/DL (0.60-1.30); GFR ESTIMATED > 60; GLUCOSE 128 MG/DL (70-105); POTASSIUM 3.8 MMOL/L (3.6-5.0); SODIUM 138 MMOL/L (135-145); TOTAL PROTEIN 7.4 GM/DL (6.4-8.2)
[2019-08-06] MEDS ORDERED: TRM50T PO (19:18)
[2019-08-06] MEDS ORDERED: CYCL10TA9 PO (19:18)
[2019-08-06 19:39] VITALS: BP 130/83
== END 2019-08-06 19:40 | disposition home or self-care (01) ==
LOC: EDUNIT# 17:23 → ER 17:24
DX: S06.0X0A Concussion without loss of consciousness, initial encounter (principal); S80.12XA Contusion of left lower leg, initial encounter; S16.1XXA Strain of muscle, fascia and tendon at neck level, initial encounter; I10 Essential (primary) hypertension; G47.30 Sleep apnea, unspecified; R40.2142 Coma scale, eyes open, spontaneous, at arrival to emergency department; R40.2252 Coma scale, best verbal response, oriented, at arrival to emergency department; R40.2362 Coma scale, best motor response, obeys commands, at arrival to emergency department; Z23 Encounter for immunization; Z99.89 Dependence on other enabling machines and devices; Z88.8 Allergy status to other drugs, medicaments and biological substances; Z87.891 Personal history of nicotine dependence; V49.40XA Driver injured in collision with unspecified motor vehicles in traffic accident, initial encounter
CPT/HCPCS: 36415; 70450; 72125; 73590; 80053; 85025; 90715